=== PATIENT | female | born 1960 | race Caucasian/White ===

== ENCOUNTER 2017-07-11 11:54 | Inpatient (IN) | payer OTHER ==
[2017-07-11 13:36] VITALS: BMI 46.7
[2017-07-11] MEDS ORDERED: ALBUTEROL 2.5 MG/3 ML NEB SOL IH PRN (14:20)
[2017-07-11] MEDS: TRAMADOL HCL 50 MG TAB PO PRN ×2 (14:47→18:31)
[2017-07-11] MEDS ORDERED: VANCOMYCIN/NS 1 gm 1 GM/250 ML BAG IV SCH (15:00)
[2017-07-11] MEDS: VANCOMYCIN 2 GM in NA CHLORIDE 0.9% 500 ML IVPB SCH (15:04)
[2017-07-11 16:07] LABS: Urine Appearance CLEAR; Urine Bilirubin NEGATIVE (NEG); Urine Blood NEGATIVE (NEG); Urine Color YELLOW; Urine Glucose NEGATIVE (NEG); Urine Protein NEGATIVE (NEG); Urine Specific Gravity 1.025 (1.005-1.030); Urine Urobilinogen 0.2 mg/dL (0.2-1.0)
[2017-07-11 16:07] LABS: Absolute Lymphocytes (CBC) 1.4 K/uL (0.7-4.9); Absolute Monocytes 0.7 K/uL (0.1-1.3); Basophils % 1.1 % (0-1.3); Eosinophils % 4.1 % (0-4.4); Hematocrit 37.4 % (36.0-45.0); Lymphocytes % 16.1 % (15.3-44.8); MCH 30.3 pg (27.0-35.0); MPV 9.9 fL (7.6-11.3); Monocytes % 8.5 % (3.3-12.3); RBC Red Blood Cell Count 4.16 M/uL (3.86-4.86)
[2017-07-11 16:16] LABS: Urine Microscopic Reflex NO UMIC
[2017-07-11 16:37] LABS: Albumin 3.6 g/dL (3.2-5.5); Bilirubin Direct 0.1 mg/dL (0-0.2); Bilirubin Total 0.4 mg/dL (0.3-1.2); Protein, Total 6.6 g/dL (6.0-8.3)
[2017-07-11 16:45] LABS: Potassium 3.9 mEq/L (3.6-5.0)
[2017-07-11] MEDS: ALBUTEROL 2.5 MG/3 ML NEB SOL IH SCH (19:44)
[2017-07-11] MEDS: IPRATROPIUM BROM 0.5MG/2.5ML IH SCH (19:44)
[2017-07-11] MEDS: CALCIUM SUPPLEMENT PO SCH (21:39)
[2017-07-11] MEDS: CODEINE 30MG/APAP 300MG TAB PO PRN (22:55)
[2017-07-12] MEDS: IPRATROPIUM BROM 0.5MG/2.5ML IH SCH ×4 (01:46→19:20)
[2017-07-12] MEDS: ALBUTEROL 2.5 MG/3 ML NEB SOL IH SCH ×4 (01:46→19:21)
--- NOTE | 2017-07-12 03:07 | HP ---
Date of Admission: 07/11/2017 Chief Complaint: Painful breasts. History Of Present Illness: The patient dates her breast problem back approximately 6 weeks when she noticed a small area of redness around the medial portion of the right breast. She was treated with antibiotics with marked improvement. However, she said it did not completely fade away. Then she h ad a recurrence. Once again, she was given intramuscular and p.o. antibiotics couple weeks ago and c ontinued to improve until 2 days ago when she woke. Breast was enlarged, markedly tender. Some jessica rated area below the lateral portion of the right breast and erythema extending from the medial to th e lateral portion. She was afebrile. She was given the same antibiotics and then today presented wi th possibly increasing discomfort. However, she also noticed some discomfort in the left axillary an d nipple areas. Minimal amount of erythema. Due to the persistence and recurrence of the symptoms, we decided to admitted her for IV antibiotics and the possibility of biopsy, depending on her respons e, to make sure there was an underlying CA. Significant past history the patient is significantly im munocompromised secondary to large steroid doses for temporal arteritis. She also developed signific ant bronchial problems and has been seen by process safety manager in [place] with apparent defects in her mac Web and Rank. She has been gradually weaned off her steroids. Past Medical History: As above. Prior to the temporal arteritis, the patient was in good general he alth. Also significant that the patient had a lymphatic axillary dissection over 10 years ago for a nonspecific lymphadenitis. Family History: Noncontributory. Social History: Nonsmoker, nondrinker. Physical Examination: General: The patient is obviously uncomfortable middle-aged female. Vital Signs: Stable vital signs in no acute distress. Temperature 98.6, blood pressure 140/70, puls e 84 and regular, respiratory rate 22. Head and Neck: Normocephalic. Pupils equal, react to accommodation. Fundi negative. Trachea midli ne. Thyroid not palpable. ENT: Negative. Chest: Occasional high-pitched rhonchi bilaterally. Breasts: Left breast is tender around the nipple area areolar area and axillary area. Right breast enlarged, marked erythema from the medial to the lateral aspect, mostly below the nipple and indurate d in the inferior portion. Cardiovascular: PMI, midclavicular line. Heart: Sounds normal. Peripheral pulses present and equal bilaterally. Abdomen: No organomegaly. Bowel sounds present. Moderately obese. Extremities: Good tone bilaterally reflexes physiologic. Rectal: Deferred. Pelvic: Deferred. Impression: Cellulitis of the breast. Plan: The patient will be admitted and placed on IV antibiotics. Consultation was obtained with Meggan allen for a possible biopsy. The likelihood of this being CA with bilateral involvement, marked immunosuppression, and a right axi llary dissection is unlikely but needs to be considered. It is also of note that she had a mammogram routine in March, which was negative. Recent ultrasound did not show any abnormalities other abraham n the thickening of the tissue secondary to the cellulitis. HR/MODL Voice ID: [id number]
[2017-07-12] MEDS: PANTOPRAZOLE 40MG TABLET PO SCH (06:09)
[2017-07-12] MEDS: CODEINE 30MG/APAP 300MG TAB PO PRN ×2 (06:09→18:04)
[2017-07-12] MEDS: predniSONE 1 MG TAB PO SCH (08:59)
[2017-07-12] MEDS: CALCIUM SUPPLEMENT PO SCH ×2 (08:59→20:35)
[2017-07-12] MEDS: ASPIRIN 81 MG CHEWABLE TABLET PO SCH (08:59)
[2017-07-12] MEDS: predniSONE 5 MG TAB PO SCH (08:59)
[2017-07-12] MEDS: VITAMIN B COMPLEX 1 CAP PO SCH (08:59)
[2017-07-12] MEDS: LINACLOTIDE 145 MCG PO SCH (08:59)
[2017-07-12] MEDS ORDERED: predniSONE 20 MG TAB PO SCH (09:00)
[2017-07-12] MEDS: VANCOMYCIN 2 GM in NA CHLORIDE 0.9% 500 ML IVPB SCH (09:00)
[2017-07-12] MEDS: TRAMADOL HCL 50 MG TAB PO PRN (12:36)
[2017-07-12] MEDS: MORPHINE 4 MG/ML SYR IV PRN ×3 (12:57→22:58)
[2017-07-12] MEDS: NA CHLORIDE 0.9% 1,000 ML IV SCH ×2 (13:02→20:35)
--- NOTE | 2017-07-12 18:07 | P.PN ---
Subjective Date of Service: 07/12/17 Subjective: Improving Review of Systems General: Fever (no), Chills (o) ENT: Unremarkable Respiratory: Unremarkable Physical Examination - Vital Signs Temperature: 97.5 F Blood Pressure: 128/67 Pulse: 68 Respirations: 18 Pulse Ox (%): 100 - Physical Exam General: Alert, In no apparent distress, Oriented x3 HEENT: PERRLA, EOMI Respiratory: Normal air movement Integumentary: No rashes, No breakdown, No cyanosis Assessment And Plan - Plan biopsy when punch bx available ABx per dr camacho
--- NOTE | 2017-07-12 21:55 | PN ---
Date of Progress Note: 07/12/2017 The patient states the pain is approximately the same. However, examination still reveals some decre ase in erythema. However, the entire area of wall remains the same. Discussed with the surgery and a biopsy punch will be done and tissue can be sent for culture as well as for cytology. HR/MODL Voice ID: [id number] Report ID: [id number]
[2017-07-13] MEDS: IPRATROPIUM BROM 0.5MG/2.5ML IH SCH ×4 (01:09→19:42)
[2017-07-13] MEDS: ALBUTEROL 2.5 MG/3 ML NEB SOL IH SCH ×4 (01:10→19:42)
[2017-07-13] MEDS: CODEINE 30MG/APAP 300MG TAB PO PRN ×2 (02:30→14:20)
[2017-07-13] MEDS: VANCOMYCIN 2 GM in NA CHLORIDE 0.9% 500 ML IVPB SCH ×2 (02:32→20:37)
[2017-07-13 04:19] VITALS: O2SAT 93
[2017-07-13] MEDS: MORPHINE 4 MG/ML SYR IV PRN ×6 (07:24→23:55)
[2017-07-13] MEDS: PANTOPRAZOLE 40MG TABLET PO SCH (08:14)
[2017-07-13] MEDS: ASPIRIN 81 MG CHEWABLE TABLET PO SCH (08:15)
[2017-07-13] MEDS: predniSONE 1 MG TAB PO SCH (08:16)
[2017-07-13] MEDS: VITAMIN B COMPLEX 1 CAP PO SCH (08:16)
[2017-07-13] MEDS: predniSONE 5 MG TAB PO SCH (08:16)
[2017-07-13] MEDS: CALCIUM SUPPLEMENT PO SCH ×2 (08:18→20:36)
[2017-07-13] MEDS: LINACLOTIDE 145 MCG PO SCH (08:18)
[2017-07-13] MEDS: NA CHLORIDE 0.9% 1,000 ML IV SCH ×2 (08:18→18:00)
[2017-07-13] MEDS ORDERED: LIDOCAINE 1% 20 ML MDV IV ONE (15:22)
[2017-07-13] MEDS ORDERED: MORPHINE 4 MG/ML SYR IV ONE (16:27)
--- NOTE | 2017-07-13 17:02 | P.BOP ---
Preoperative diagnosis: right recurrent mastitis and dermatitis Postoperative diagnosis: same Primary procedure: 1. Incisional biospy right breast nipple areolar complex Secondary procedure: 2. Incisional biospy right breast medial Other procedure(s): 3. Incisional biospy right breast lateral Estimated blood loss: <5cc Specimen: bx x 3 Findings: as above Anesthesia: Local Complications: None Transferred to: Recovery Room Condition: Good
--- NOTE | 2017-07-13 21:17 | PN ---
Date of Progress Note: 07/13/2017 Subjective: The patient underwent the a biopsy this afternoon. Actually areas still looks erythemat ous, maybe slightly less so. Plan will be to continue the vancomycin until we perhaps get a prelimin armando path and/or pathological report tomorrow, and depending on the results, make a disposition. HR/MODL Voice ID: [id number] Report ID: [id number]
--- NOTE | 2017-07-14 00:20 | OP ---
Date of Procedure: 07/13/2017 Surgeon: Marcel Magana MD Preoperative Diagnosis: Right recurrent mastitis and dermatitis. Postoperative Diagnosis: Right recurrent mastitis and dermatitis. Procedures: 1.Incisional biopsy of a right breast nipple areolar complex. 2.Incisional biopsy of right breast medial side. 3.Incisional biopsy of right lateral breast. Anesthesia: Local. Indications: This is the case of a 57-year-old patient, who came to us with recurrent right breast i nfection with dermatitis. The imaging shows thickening of the skin over the right breast area and pe riareolar nipples region too. Dr. Aguirre has been giving her antibiotics on and off and it showed s ome improvement and then comes back once again. The possibility of inflammatory breast cancer is ovalle sed, so they consulted for a biopsy and also for tissue culture. The benefits, alternatives, and ris ks of incisional biopsy fully explained to the patient, which include but are not limited to infectio n, bleeding, damage to adjacent structures, anesthesia complications, complication nonhealing wound, ID, and even . She also understood this may not relieve any symptoms. She might need more than one surgical intervention. She understood and signed the consent. Procedure In Detail: The patient was in her room, placed in a supine position. The right breast was prepped and draped in sterile fashion. A time-out was called. After that we placed lidocaine 1% pl ain in different areas of the breast. We took at least 3 samples. Of the samples, 2 of them will be sent for cytology and one of them will be sent for tissue biopsy. Each one done in different areas of the breast using same technique, which consisted of local anesthetic, using of a circular blade, a 3-mm proceed to take a full thickness skin with some of the breast tissue attached to it and sent to the pathologist. Each specimen was sent individually. The patient tolerated the procedure well. H emostasis was obtained and the area was covered with sterile dressings. The patient tolerated the pr ocedure well. NAIMA/TANVIR Voice ID: [id number] Report ID: [id number]
[2017-07-14] MEDS: IPRATROPIUM BROM 0.5MG/2.5ML IH SCH ×4 (01:15→19:58)
[2017-07-14] MEDS: ALBUTEROL 2.5 MG/3 ML NEB SOL IH SCH ×4 (01:15→19:58)
[2017-07-14] MEDS: MORPHINE 4 MG/ML SYR IV PRN ×4 (03:27→14:27)
[2017-07-14] MEDS: NA CHLORIDE 0.9% 1,000 ML IV SCH ×2 (05:52→15:00)
[2017-07-14] MEDS: CALCIUM SUPPLEMENT PO SCH ×2 (08:32→20:21)
[2017-07-14] MEDS: LINACLOTIDE 145 MCG PO SCH (08:32)
[2017-07-14] MEDS: ASPIRIN 81 MG CHEWABLE TABLET PO SCH (08:33)
[2017-07-14] MEDS: predniSONE 1 MG TAB PO SCH (08:33)
[2017-07-14] MEDS: predniSONE 5 MG TAB PO SCH (08:33)
[2017-07-14] MEDS: PANTOPRAZOLE 40MG TABLET PO SCH (08:33)
[2017-07-14] MEDS: VITAMIN B COMPLEX 1 CAP PO SCH (08:38)
[2017-07-14] MEDS: ONDANSETRON 4 MG (ODT) TAB PO PRN ×2 (10:04→14:27)
[2017-07-14] MEDS: CODEINE 30MG/APAP 300MG TAB PO PRN ×2 (11:55→20:20)
--- NOTE | 2017-07-14 13:04 | P.PN ---
Subjective Date of Service: 07/14/17 Primary Care Provider: Dr Aguirre Chief Complaint: Breast Tenderness Subjective: No new changes, No C/O voiced, Improving, Doing well Review of Systems General: As per HPI Physical Examination - Vital Signs Temperature: 97.2 F Blood Pressure: 114/68 Pulse: 70 Respirations: 16 Pulse Ox (%): 98 - Physical Exam General: Alert, In no apparent distress HEENT: Atraumatic Neck: Supple, JVD not distended Respiratory: Clear to auscultation bilaterally, Normal air movement Cardiovascular: Regular rate/rhythm, Normal S1 S2 Gastrointestinal: Normal bowel sounds, No tenderness Musculoskeletal: No tenderness Integumentary: Other (Right breast with erythema and tenderness. Getting better per patient. ) Neurological: Normal speech, Normal tone, Normal affect Lymphatics: No axilla or inguinal lymphadenopathy - Studies Medications List Reviewed: Yes Assessment & Plan - Problems (Diagnosis) (1) Cellulitis of right breast Onset Date: 07/12/17 Current Visit: No Status: Acute Plan: Cellulitis of the right breast in lieu of chronic steriod use. -Gen Surgery Consulted. Biopsy performed. -Culture pending -On IV vanc. Will continue (2) Chronic use of steroids Current Visit: No Status: Chronic (3) Obesity Current Visit: No Status: Chronic Qualifiers: Obesity type: due to excess calories Obesity classification: adult class 3 (BMI >= 40) Serious obesity comorbidity presence: with serious comorbidity Body mass index: BMI 40.0-44.9 Qualified Code(s): E66.01 - Morbid (severe) obesity due to excess calories; Z68.41 - Body mass index (BMI) 40.0-44.9, adult ; Z68.41 - Body mass index (BMI) 40.0-44.9, adult; Z68.41 - Body mass index (BMI ) 40.0-44.9, adult; Z68.41 - Body mass index (BMI) 40.0-44.9, adult (4) Temporal arteritis Current Visit: No Status: Chronic (5) GERD (gastroesophageal reflux disease) Current Visit: No Status: Suspected Qualifiers: Esophagitis presence: esophagitis presence not specified Qualified Code(s) : K21.9 - Gastro-esophageal reflux disease without esophagitis (6) Obstructive sleep apnea Current Visit: No Status: Suspected Discharge Plan: Home Plan to discharge in: 24 Hours - Code Status/Comfort Care Code Status Assessed: Yes Critical Care: No
[2017-07-14] MEDS: VANCOMYCIN 2 GM in NA CHLORIDE 0.9% 500 ML IVPB SCH (15:57)
[2017-07-15] MEDS: ALBUTEROL 2.5 MG/3 ML NEB SOL IH SCH ×4 (01:31→20:03)
[2017-07-15] MEDS: IPRATROPIUM BROM 0.5MG/2.5ML IH SCH ×4 (01:31→20:03)
[2017-07-15] MEDS: TRAMADOL HCL 50 MG TAB PO PRN ×2 (02:38→08:43)
[2017-07-15] MEDS: NA CHLORIDE 0.9% 1,000 ML IV SCH ×3 (02:40→20:31)
[2017-07-15] MEDS: CODEINE 30MG/APAP 300MG TAB PO PRN ×3 (04:56→23:06)
[2017-07-15] MEDS: VANCOMYCIN 2 GM in NA CHLORIDE 0.9% 500 ML IVPB SCH (08:34)
[2017-07-15] MEDS: VITAMIN B COMPLEX 1 CAP PO SCH (08:34)
[2017-07-15] MEDS: PANTOPRAZOLE 40MG TABLET PO SCH (08:34)
[2017-07-15] MEDS: predniSONE 5 MG TAB PO SCH (08:34)
[2017-07-15] MEDS: predniSONE 1 MG TAB PO SCH (08:34)
[2017-07-15] MEDS: CALCIUM SUPPLEMENT PO SCH ×2 (08:34→20:31)
[2017-07-15] MEDS: LINACLOTIDE 145 MCG PO SCH (08:34)
[2017-07-15] MEDS: ASPIRIN 81 MG CHEWABLE TABLET PO SCH (08:36)
[2017-07-15] MEDS: MORPHINE 4 MG/ML SYR IV PRN (11:18)
--- NOTE | 2017-07-15 12:06 | P.PN ---
Subjective Date of Service: 07/15/17 Primary Care Provider: Dr Aguirre Chief Complaint: Breast Tenderness PT seen and examined at bedside. Chart Reviewed. Currently pt has no complains to offer and has been doing well overall. States pain is getting better and so is the erythema. Review of Systems General: As per HPI Physical Examination - Vital Signs Temperature: 96.6 F Blood Pressure: 117/61 Pulse: 71 Respirations: 16 Pulse Ox (%): 96 - Physical Exam General: Alert, In no apparent distress HEENT: Atraumatic Neck: Supple Respiratory: Clear to auscultation bilaterally, Normal air movement Cardiovascular: Regular rate/rhythm, Normal S1 S2 Gastrointestinal: Normal bowel sounds, No tenderness Musculoskeletal: No tenderness Integumentary: Erythema, Warmth (Right Breast Erythema around the nipple and on the right lower side. ) Neurological: Normal speech, Normal tone, Normal affect Lymphatics: No axilla or inguinal lymphadenopathy - Studies Microbiology Data (last 24 hrs): 07/13/17 15:35 Wound - Right Breast Gram Stain - Final Medications List Reviewed: Yes Assessment & Plan - Problems (Diagnosis) (1) Cellulitis of right breast Onset Date: 07/12/17 Current Visit: No Status: Acute Plan: Cellulitis of the right breast in lieu of chronic steriod use. -Gen Surgery Consulted. Biopsy performed. -Culture pending -On IV vanc. Will continue (2) Chronic use of steroids Current Visit: No Status: Chronic (3) Obesity Current Visit: No Status: Chronic Qualifiers: Obesity type: due to excess calories Obesity classification: adult class 3 (BMI >= 40) Serious obesity comorbidity presence: with serious comorbidity Body mass index: BMI 40.0-44.9 Qualified Code(s): E66.01 - Morbid (severe) obesity due to excess calories; Z68.41 - Body mass index (BMI) 40.0-44.9, adult ; Z68.41 - Body mass index (BMI) 40.0-44.9, adult; Z68.41 - Body mass index (BMI ) 40.0-44.9, adult; Z68.41 - Body mass index (BMI) 40.0-44.9, adult (4) Temporal arteritis Current Visit: No Status: Chronic (5) GERD (gastroesophageal reflux disease) Current Visit: No Status: Suspected Qualifiers: Esophagitis presence: esophagitis presence not specified Qualified Code(s) : K21.9 - Gastro-esophageal reflux disease without esophagitis (6) Obstructive sleep apnea Current Visit: No Status: Suspected
[2017-07-16] MEDS: IPRATROPIUM BROM 0.5MG/2.5ML IH SCH ×4 (01:14→19:54)
[2017-07-16] MEDS: ALBUTEROL 2.5 MG/3 ML NEB SOL IH SCH ×4 (01:14→19:54)
[2017-07-16] MEDS: VANCOMYCIN 2 GM in NA CHLORIDE 0.9% 500 ML IVPB SCH ×2 (03:00→14:33)
[2017-07-16] MEDS: NA CHLORIDE 0.9% 1,000 ML IV SCH ×3 (05:41→20:55)
[2017-07-16] MEDS: CALCIUM SUPPLEMENT PO SCH ×2 (09:36→20:55)
[2017-07-16] MEDS: VITAMIN B COMPLEX 1 CAP PO SCH (09:37)
[2017-07-16] MEDS: ASPIRIN 81 MG CHEWABLE TABLET PO SCH (09:37)
[2017-07-16] MEDS: predniSONE 1 MG TAB PO SCH (09:37)
[2017-07-16] MEDS: predniSONE 5 MG TAB PO SCH (09:37)
[2017-07-16] MEDS: PANTOPRAZOLE 40MG TABLET PO SCH (09:37)
[2017-07-16] MEDS: CODEINE 30MG/APAP 300MG TAB PO PRN ×2 (09:37→17:12)
[2017-07-16] MEDS: LINACLOTIDE 145 MCG PO SCH (09:37)
[2017-07-16] MEDS: TRAMADOL HCL 50 MG TAB PO PRN ×2 (15:09→20:59)
[2017-07-17] MEDS: CODEINE 30MG/APAP 300MG TAB PO PRN ×2 (01:08→08:54)
[2017-07-17] MEDS: IPRATROPIUM BROM 0.5MG/2.5ML IH SCH ×4 (01:21→19:28)
[2017-07-17] MEDS: ALBUTEROL 2.5 MG/3 ML NEB SOL IH SCH ×4 (01:21→19:29)
[2017-07-17] MEDS: CALCIUM SUPPLEMENT PO SCH ×2 (08:53→21:00)
[2017-07-17] MEDS: predniSONE 1 MG TAB PO SCH (08:53)
[2017-07-17] MEDS: LINACLOTIDE 145 MCG PO SCH (08:53)
[2017-07-17] MEDS: PANTOPRAZOLE 40MG TABLET PO SCH (08:54)
[2017-07-17] MEDS: VITAMIN B COMPLEX 1 CAP PO SCH (08:54)
[2017-07-17] MEDS: predniSONE 5 MG TAB PO SCH (08:54)
[2017-07-17] MEDS: ASPIRIN 81 MG CHEWABLE TABLET PO SCH (08:54)
--- NOTE | 2017-07-17 12:33 | P.PN ---
Subjective Date of Service: 07/16/17 Primary Care Provider: Dr Camacho Chief Complaint: Breast Tenderness / R mastitis Subjective: Tolerating diet, Improving Review of Systems General: Unremarkable Respiratory: Unremarkable Cardiovascular: Unremarkable Gastrointestinal: Unremarkable Integumentary: Rash (no) Physical Examination - Vital Signs Temperature: 97.6 F Blood Pressure: 118/57 Pulse: 81 Respirations: 18 Pulse Ox (%): 98 - Physical Exam General: Alert, Oriented x3, Cooperative HEENT: PERRLA, EOMI Neck: Supple Cardiovascular: Normal pulses Gastrointestinal: Soft and benign, No rebound, No guarding Integumentary: No rashes, No erythema (Ressolved erythema), No warmth, No cyanosis - Studies Microbiology Data (last 24 hrs): 07/13/17 15:35 Wound - Right Breast Gram Stain - Final 07/13/17 15:35 Wound - Right Breast Culture & Sensitivity - Final Medications List Reviewed: Yes Assessment And Plan - Plan biopsy pending, case discussed today with radiology dept and pt ABx per dr camacho
[2017-07-17] MEDS: NA CHLORIDE 0.9% 1,000 ML IV SCH (13:00)
[2017-07-17] MEDS: TRAMADOL HCL 50 MG TAB PO PRN (13:23)
--- NOTE | 2017-07-17 14:42 | PN ---
Date of Progress Note: 07/16/2017 The patient continues complaining of discomfort in the entire breast, which is still quite enlarged; however, the erythema has improved markedly. The left axillary tenderness is also improved considera tony. Awaiting cytology report before making disposition. HR/MODL Voice ID: [id number] Report ID: [id number]
[2017-07-17] MEDS: VANCOMYCIN 2 GM in NA CHLORIDE 0.9% 500 ML IVPB SCH (15:35)
[2017-07-17] MEDS ORDERED: CODEINE 30MG/APAP 300MG TAB PO ONE (18:14)
[2017-07-17 20:58] VITALS: BP 130/82; TEMP 97.3
--- NOTE | 2017-07-18 21:34 | PN ---
Date of Progress Note: 07/17/2017 The patient's biopsies come back with chronic inflammation. No evidence of any cancers. She still c omplains of discomfort and enlargement in the right breast. However, the erythema continues to reced e. I feel she will be well enough to be discharged on oral medication and use Cleocin as antibiotic of choice. Tissue culture was negative. The patient obviously had been on antibiotics. She is to f soraida up with my office in 4 or 5 days. HR/MODL Voice ID: [id number] Report ID: [id number]
--- NOTE | 2017-09-16 18:20 | DS ---
Date of Discharge: 07/17/2017 Hospital Course: The patient was admitted to the hospital on 07/11 for treatment of severe mastitis of the right breast. The patient was a failure to control her symptoms, erythema, pain, marked edema on an outpatient basis with various antibiotics and was therefore decided to admit her for more inte nsive care and possible biopsy. She was placed on IV vancomycin and showed some rather good improvem ent in the first couple of days; however, then seemed to level up, also during this time complained o f some discomfort in the left axillary area; however, no true cellulitis developed in this area. She was seen by surgeon, who performed 3 incisional biopsies to make sure there was not any underlying c ancer, at which there was none. On the above-outlined regimen, she showed slow, but gradual improvem ent. She was continued on decreasing dose of steroids, which she has been on for a number of months now for temporal arteritis. At the time of discharge, she was maintained on oral antibiotics and armida lgesics, to follow up with myself and a surgeon in fair condition on 07/17. Final Diagnoses: Cellulitis of the right breast, severe temporal arteritis by history. HR/MODL Voice ID: [id number] Report ID: [id number]
== END 2017-07-17 21:55 | disposition home or self-care (01) | DRG 600 ==
LOC: 2ND 13:23 → OBSVTOIN 07-13 10:02
PROVIDERS: ADMIT Family Medicine; ATTEND Family Medicine
PROC: 0HBT3ZX Excision of Right Breast, Percutaneous Approach, Diagnostic (ICD-10-PCS; principal; 2017-07-13)
DX: N61.0 Mastitis without abscess (principal); Z68.42 Body mass index [BMI] 45.0-49.9, adult; L30.9 Dermatitis, unspecified; M31.6 Other giant cell arteritis; T45.1X5A Adverse effect of antineoplastic and immunosuppressive drugs, initial encounter; Y92.9 Unspecified place or not applicable; Z79.52 Long term (current) use of systemic steroids; E66.9 Obesity, unspecified
CPT/HCPCS: 36415; 80048; 80076; 80202; 81003; 82565; 85025; 87070; 87205; 88305; G0378; J7030; J7512

== ENCOUNTER 2021-10-05 12:13 | Emergency (ER) | payer OTHER ==
[2021-10-05 14:47] LABS: Absolute Lymphocytes (CBC) 1.6 K/uL (0.7-4.9); Hematocrit 41.9 % (36.0-45.0); Lymphocytes % 21.9 % (15.3-44.8); MCV 88.1 fL (80-100); MPV 9.2 fL (7.6-11.3); RBC Red Blood Cell Count 4.76 M/uL (3.86-4.86)
[2021-10-05 14:55] LABS: Protime INR 0.91
[2021-10-05 15:31] LABS: ALT/SGPT 147 U/L (12-78); AST/SGOT 71 U/L (15-37); Albumin 3.5 g/dL (3.4-5.0); Alkaline Phosphatase 114 U/L (45-117); BUN Blood Urea Nitrogen 11 mg/dL (7-18); Bicarbonate 26 mmol/L (21-32); Bilirubin Total 0.4 mg/dL (0.2-1.0); C-Reactive Protein 5.07 mg/L (<3.00); Glomerular Filtration Rate 98 ml/min (=/>90); Glucose Level 82 mg/dL (74-106); Potassium 4.3 mmol/L (3.5-5.1); Protein, Total 7.1 g/dL (6.4-8.2); Sodium Level 138 mmol/L (136-145); Troponin High Sensitivity 5.1 pg/mL (<58.9)
[2021-10-05 15:36] LABS: Bilirubin Direct < 0.1 mg/dL (0-0.2)
[2021-10-05] MEDS ORDERED: HYDROCODONE/APAP 7.5/325 MG TAB ONE (16:13)
[2021-10-05] MEDS ORDERED: METOCLOPRAMIDE 10 MG/2mL INJ ONE (16:13)
[2021-10-05] MEDS ORDERED: dexAMETHasone 10 MG/ML VIAL ONE (16:14)
--- NOTE | 2021-10-05 16:43 | RAD REPORT ---
EXAM DESCRIPTION: CT - Head Brain Wo Cont - 10/05/2021 4:25 pm CLINICAL HISTORY: Headache, new or worsening Headache, drowsiness COMPARISON: Sinus Wo Cont dated 07/02/2017 TECHNIQUE: All CT scans are performed using dose optimization technique as appropriate and may inclu de automated exposure control or mA/KV adjustment according to patient size. FINDINGS: No intracranial hemorrhage, hydrocephalus or extra-axial fluid collection.No areas of brai n edema or evidence of midline shift. The paranasal sinuses and mastoids are clear. The calvarium is intact. IMPRESSION: No acute intracranial abnormality.
--- NOTE | 2021-10-05 17:22 | ER ---
Nurse's Notes [facility] Name: Bushra Anderson Age: 61 yrs Sex: Female : 1960 Arrival Date: 10/05/2021 Time: 12:16 Bed 15 Private MD: Darien Aguirre Diagnosis: Headache;Hypertensive heart disease without heart failure Presentation: 10/05 12:30 Chief complaint: Patient states: "The last couple days, I felt like my face was kind of ss swollen, so I took my blood pressure and it was kind of high. Vivian with Dr. Aguirre sent me here." Pt reports that her BP at home was 161/102, 168/119. 12:33 Coronavirus screen: Client denies travel out of the [place] in the last 14 days. Ebola ss Screen: Patient denies exposure to infectious person. Patient denies travel to an Ebola-affected area in the 21 days before illness onset. Initial Sepsis Screen: Does the patient meet any 2 criteria? No. Patient's initial sepsis screen is negative. Does the patient have a suspected source of infection? No. Patient's initial sepsis screen is negative. Risk Assessment: Do you want to hurt yourself or someone else? Patient reports no desire to harm self or others. Onset of symptoms is unknown. 12:33 Method Of Arrival: Wheelchair ss 12:33 Acuity: TARA 3 ss Triage Assessment: 16:40 General: Appears uncomfortable, Behavior is calm, cooperative. Pain: Complains of pain jg9 in head. Historical: - Allergies: 12:30 Bees; ss - PMHx: 12:30 fatty liver; GERD; Hypertension; Stomach Ulcers; Vertigo; ss - Immunization history:: Client reports receiving the 2nd dose of the Covid vaccine. - Social history:: Smoking status: Patient denies any tobacco usage or history of. Screenin:25 Abuse screen: Denies threats or abuse. Denies injuries from another. Nutritional jg9 screening: No deficits noted. Tuberculosis screening: No symptoms or risk factors identified. Fall Risk None identified. Assessment: 17:25 Reassessment: Patient states feeling better. Patient states symptoms have improved. jg9 Vital Signs: 12:30 Pulse 83; Resp 16; Temp 97.5(TE); Pulse Ox 99% on R/A; Height 5 ft. 5 in. (165.10 cm); ss 12:33 BP 150 / 80; ss 12:34 Pain 4/10; ss 17:15 BP 114 / 60; Pulse 68; Resp 16 S; Pulse Ox 97% on R/A; jg9 17:45 BP 104 / 63; Pulse 65; Resp 16 S; Pulse Ox 95% on R/A; jg9 ED Course: 12:16 Patient arrived in ED. as 12:16 Darien Aguirre MD is Private Physician. as 12:30 Arm band placed on left wrist. ss 12:34 Triage completed. ss 13:24 José Miguel Flores PA is PHCP. cp 13:24 Mo Almonte MD is Attending Physician. cp 14:19 Tamika Ayala, JULIA is Primary Nurse. ss 16:00 Patient has correct armband on for positive identification. Bed in low position. Call jg9 light in reach. Side rails up X 1. 16:00 Inserted saline lock: 22 gauge in left forearm, using aseptic technique. jg9 16:27 CT Head Brain wo Cont In Process Unspecified. EDMS 17:20 Darien Aguirre MD is Referral Physician. cp 17:26 No provider procedures requiring assistance completed. jg9 Administered Medications: 16:45 Drug: Reglan (metoCLOPramide) 10 mg Route: IVP; Site: left forearm; jg9 17:41 Follow up: Response: No adverse reaction jg9 16:45 Drug: Dexamethasone 10 mg Route: IVP; Site: left forearm; jg9 17:41 Follow up: Response: No adverse reaction jg9 16:47 Drug: Hydrocodone-Acetaminophen (7.5 mg-325 mg) 1 tabs Route: PO; jg9 17:46 Follow up: Response: No adverse reaction; Marked relief of symptoms jg9 Medication: 17:27 VIS not applicable for this client. jg9 Outcome: 17:21 Discharge ordered by MD. cp 17:50 Patient left the ED. jg9 Signatures: Dispatcher [employer] EDMS Kaitlin Magana Shelby, RN RN José Miguel Flores PA PA cp Amberly Chowdhury RN RN jg9
--- NOTE | 2021-10-05 17:22 | EDPHYS ---
Physician Documentation [facility] Name: Bushra Anderson Age: 61 yrs Sex: Female : 1960 Arrival Date: 10/05/2021 Time: 12:16 Bed 15 Private MD: Draien Aguirre ED Physician Mo Almonte Historical: - Allergies: 10/05 12:30 Bees; ss - PMHx: 12:30 fatty liver; GERD; Hypertension; Stomach Ulcers; Vertigo; ss - Immunization history:: Client reports receiving the 2nd dose of the Covid vaccine. - Social history:: Smoking status: Patient denies any tobacco usage or history of. Vital Signs: 12:30 Pulse 83; Resp 16; Temp 97.5(TE); Pulse Ox 99% on R/A; Height 5 ft. 5 in. (165.10 cm); ss 12:33 BP 150 / 80; ss 12:34 Pain 4/10; ss 17:15 BP 114 / 60; Pulse 68; Resp 16 S; Pulse Ox 97% on R/A; jg9 17:45 BP 104 / 63; Pulse 65; Resp 16 S; Pulse Ox 95% on R/A; jg9 MDM: 15:35 Patient medically screened. cp 17:19 Data reviewed: vital signs, nurses notes, lab test result(s), EKG, radiologic studies, cp CT scan. Test interpretation: by ED physician or midlevel provider: ECG. Physician consultation: Darien Aguirre MD was contacted at 17:19, regarding patient's condition, outpatient follow-up, patient to contact office in morning for f/u. 10/05 14:24 Order name: Basic Metabolic Panel; Complete Time: 15:53 cp 10/05 14:24 Order name: CBC with Diff; Complete Time: 15:53 cp 10/05 14:24 Order name: LFT's; Complete Time: 15:53 cp 10/05 15:53 Interpretation: Normal except: AST 71; ALT 147; GLOB 3.6; A/G 1.0. cp 10/05 14:24 Order name: Magnesium; Complete Time: 15:53 cp 10/05 14:24 Order name: PT-INR; Complete Time: 15:53 cp 10/05 14:24 Order name: Troponin HS; Complete Time: 15:53 cp 10/05 15:53 Interpretation: Troponin HS 5.1; Reviewed. 10/05 14:24 Order name: EKG; Complete Time: 14:25 10/05 14:24 Order name: Cardiac monitoring; Complete Time: 15:39 10/05 14:24 Order name: CRP; Complete Time: 15:53 10/05 15:53 Interpretation: Abnormal: C-REACTIVE PROT 5.07. 10/05 14:24 Order name: ESR; Complete Time: 15:53 10/05 15:43 Order name: CT Head Brain wo Cont; Complete Time: 17:09 10/05 14:24 Order name: EKG - Nurse/Tech; Complete Time: 15:40 10/05 14:24 Order name: IV Saline Lock; Complete Time: 14:53 10/05 14:24 Order name: Labs collected and sent; Complete Time: 14:53 10/05 14:24 Order name: O2 Per Protocol; Complete Time: 17:42 10/05 14:24 Order name: O2 Sat Monitoring; Complete Time: 15:40 10/05 14:54 Order name: Labs - recollect needed: GREEN TOP ONLY; Complete Time: 17:42 zm Administered Medications: 16:45 Drug: Reglan (metoCLOPramide) 10 mg Route: IVP; Site: left forearm; jg9 17:41 Follow up: Response: No adverse reaction jg9 16:45 Drug: Dexamethasone 10 mg Route: IVP; Site: left forearm; jg9 17:41 Follow up: Response: No adverse reaction jg9 16:47 Drug: Hydrocodone-Acetaminophen (7.5 mg-325 mg) 1 tabs Route: PO; jg9 17:46 Follow up: Response: No adverse reaction; Marked relief of symptoms jg9 Disposition Summary: 10/05/21 17:21 Discharge Ordered Location: Home cp Problem: new cp Symptoms: have improved cp Condition: Stable cp Diagnosis - Headache cp - Hypertensive heart disease without heart failure cp Followup: cp - With: Darien Aguirre MD - When: Tomorrow - Reason: call clinic in morning fot follow-up Discharge Instructions: - Discharge Summary Sheet cp - General Headache Without Cause cp - Hypertension, Adult cp - How to Take Your Blood Pressure, Gitk-qc-Vnor cp - How to Take Your Blood Pressure cp Forms: - Medication Reconciliation Form cp - Thank You Letter cp - Antibiotic Education cp - Prescription Opioid Use cp Prescriptions: - Fioricet 50-300-40 mg Oral capsule - take 1 capsule by ORAL route every 4 hours as needed; 20 capsule; Refills: 0, cp Product Selection Permitted - Zofran 4 mg Oral Tablet - take 1 tablet by ORAL route every 12 hours As needed; 20 tablet; Refills: 0, cp Product Selection Permitted Signatures: Dispatcher [employer] Tamika Vivar RN RN ss José Miguel Flores PA PA Amberly León RN RN jg9 Frances Magana
[2021-10-05 17:56] VITALS: TEMP 97.5
[2021-10-05 18:01] VITALS: BP 104/63; O2SAT 95
--- NOTE | 2021-10-06 13:54 | EKG ---
Test Date: 2021-10-05 Test Time: 14:30:12 Motion Picture Projectionist Apprentice: JESSICA MEASUREMENT RESULTS: Intervals: Rate: 67 NH: 144 QRSD: 88 QT: 388 QTc: 409 [place]: P: 35 NH: 144 QRS: 31 T: 32 INTERPRETIVE STATEMENTS: Normal sinus rhythm Normal ECG Compared to ECG 08/03/2016 11:31:08 No significant changes Electronically Signed On 10-06-21 13:51:14 CDT by Jhonatan Garrett
== END 2021-10-05 17:50 | disposition home or self-care (01) ==
LOC: ER 12:13
DX: R51.9 Headache, unspecified (principal); I11.9 Hypertensive heart disease without heart failure; I10 Essential (primary) hypertension; Z91.030 Bee allergy status
CPT/HCPCS: 85025; 80048; 36415; 83735; 85610; 80076; 85652; 84484; 86140; 70450; J2765; J1100; 93005

== ENCOUNTER 2022-05-22 17:34 | Inpatient (IN) | payer OTHER ==
[2022-05-22 18:15] LABS: SARS-CoV-2 Antigen Rapid Res Negative (Negative)
--- OUTSIDE RECORDS SUMMARY | 2022-05-22 21:38 | XMS REPORT | Continuity of Care Document ---
:1960 Author Organization [facility] t Address [address] [place] [address] Care Team Providers Name Role Phone Kennedi León MD Primary Care Physician Justino Morris MD Attending Clinician Rochelle Elizabeth MA Attending Clinician Unavailable Toribio Teixeira DO Attending Clinician ULISES SCHREIBER Attending Clinician Unavailable NEDRA LANDON Attending Clinician Unavailable BRAYDEN ARIAS Attending Clinician Unavailable IGLESIA ZUÑIGA Attending Clinician Unavailable Yves Collado MD Attending Clinician Nacho Perales MD Attending Clinician Perlita Gross RN Attending Clinician Unavailable 2, [facility] Attending Clinician Unavailable Doctor Unassigned, Drew Attending Clinician Unavailable [facility] Attending Clinician Unavailable Brayden Arias MD Attending Clinician Kota Kelly MD Attending Clinician Payers Payer Name Policy Type Policy Number Effective Date Expiration Date S ource Problems Condition Condition Condition Status Onset Resolution Last Treating Co mments Source Name Details Category Date Date Treatment Clinician Date History of History of Disease Active U nivers temporal temporal 8-13 [place] Chronic Chronic Disease Active [facility] tension-ty tension-ty 8-13 it y of pe pe 00:00: [place] headache, headache, 00 Medi deanne not not Branch intractabl intractabl e e Chronic Chronic Disease Active Univers nonintract nonintract 8-13 it y of able able 00:00: [place] headache, headache, 00 [facility] unspecifie unspecifie Br anch d headache d headache type type Transamini Transamini Disease Active 2017-04 U nivers tis tis 1-07 ity of 00:00: [place] 00 Medical Branch Elevated Elevated Disease Active Unive rs ALT ALT 9-26 ity [place] measuremen measuremen [place] [facility] [place] Immunizati Immunizati Disease Active U nivers on on 12-20 ity of counseling counseling 00:[place] [facility] [place] Immunizati Immunizati Disease Active U nivers on on 12-20 ity of counseling counseling 00:[place] [facility] [place] 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 00:00: [place] chain chain 00 Medical Branch Hypovitami Hypovitami Disease Active U nivers nosis D: nosis D: 09-22 ity of 18(07/2017) 18(07/2017) [place] ; ; [place] Medical 19(01/2018 19(01/2018 Br anch ); ); 24(05/2018) 24(05/2018) 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 ity of without without 00:00: [place] dysplasia dysplasia 00 [facility] Branch Screening Screening Disease Active Uni vers for HIV for HIV 6-20 ity of (human (human 00:00: [place] immunodefi immunodefi 00 Me dical ciency ciency Branch virus) virus) Fatigue, Fatigue, Disease Active Unive rs unspecifie unspecifie 6-20 it y of d type d type 00:00: [place] 00 Medical Branch 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 6-20 ity of 00:00: [place] 00 Medical Branch penitentiary penitentiary Disease Active Uni vers current current 6-20 ity of use of use of 00:00: [place] systemic systemic 00 Medica l steroids steroids Branch At risk At risk Disease Active Univers for bone for bone 6-20 ity of density density 00:00: [place] loss loss 00 Medical Branch Sicca Sicca Disease Active Univers 6-20 ity of 00:00: [place] 00 Medical Branch Allergies, Adverse Reactions, Alerts Allergy Allergy Status Severity Reaction(s) Onset Inactive Treating Comm ents Source Name Type Date Date Clinician Other Propensi Active Bee Venom Metho di ty to 5-02 st adverse 00:00: Hospita reaction 00 l s Bee Propensi Active Swelling Univer s Sting / ty to 6-20 ity of [place] adverse 00:00: [place] reaction 00 Medical s Branch BEE DRUG Active High Anaphylaxis Unive rs STING / INGREDI 6-20 ity of VENOM 00:00: [place] 00 Medical Branch Family History Family Member Diagnosis Comments Start Date Stop Date Source Natural mother Hypertension [facility] Natural mother Heart disease [facility] Paternal aunt Cancer [facility] Paternal grandmother Crohn's disease [facility] father Heart disease [facility] Maternal grandfather Cancer [facility] Maternal grandfather Heart disease [facility] Maternal grandmother Cancer [facility] Social History Social Habit Start Date Stop Date Quantity Comments Source Tobacco use and 2019-03-04 2019-03-04 Never used Universit y of exposure 00:00:00 00:00:00 [facility] Alcohol intake 2019-03-04 2019-03-04 Current University 00:00:00 00:00:00 non-drinker of [facility] [place] alcohol Branch (finding) Sex Ass[birth year] [facility] 00:00:00 00:00:00 Smoking Status Start Date Stop Date Source Never smoker [facility] Branch Medications Ordered Filled Start Stop Current Ordering Indication Dosage Frequency Signature Comments Components Source Medication Medication Date Date Medication? Clinician (SIG) Name Name doxycycline 2020-0 Yes 100mg Q.5D Take 100 M ethodi (VIBRAMYCIN 4-[address] ) 100 MG 10:00: mouth 2 Hospit a oral dosage 22 (two) l form times a day. lisinopriL 2020-0 Yes 5mg QD Take 5 mg Me thodi (PRINIVIL) 4-[address] 5 mg tablet 10:00: daily. Hosp josi 22 l fluticasone 2020-0 Yes QD Inhale Meth alan -umeclidin- 4-[address] vilanter 10:00: Hospita 100-62.5-25 22 l mcg blister with device levalbutero 2020-0 Yes 1{puff} Q4H Inhale 1-2 Methodi l (XOPENEX 4-[address] HFA) 45 10:00: every 4 Hospita mcg/actuati 22 (four) l on inhaler hours as needed for wheezing. guaiFENesin 2020-0 Yes Take by Met hodi (Mucinex) 4-[address] 1,200 mg 10:00: needed. Hospit a tablet 22 l extended release 12hr codeine-gua 2020-0 Yes [id number] 5mL [id number] Take 5 mL Methodi ifenesin 4-07 [id number] mouth [address] (GUAIFENESI 10:00: 3D (three) Hos sherry N AC) 22 times a l 10-100 mg/5 day as mL liquid needed for cough .acute pain. vitamin B 2020-0 Yes Take by Metho di complex 4-[address] (B-COMPLEX 09:39: Hospita ORAL) 56 l predniSONE 2020-0 Yes 1mg QD Take 1 mg Me thodi (DELTASONE) 4-[address] 1 mg tablet 09:39: daily. Hosp josi 56 l predniSONE 2020-0 Yes 5mg QD Take 5 mg Me thodi (DELTASONE) 4-[address] 5 mg tablet 09:39: daily. Hosp josi 56 l linaclotide 2020-0 Yes 145ug QD Take 145 M ethodi (LINZESS) 4-[address] 145 mcg 09:39: mouth Hospita capsule 56 daily l before breakfast. calcium 2020-0 Yes Q.5D Take by Methodi citrate/vit 4-[address] lackey D3 09:39: (two) Hospita (CITRACAL + 56 times a l D ORAL) day. pantoprazol 2020-0 Yes 40mg Q.5D Take 1 Meth alan e 4-07 tablet (40 st (PROTONIX) 00:00: mg total) Ho spita 40 MG EC 00 by mouth 2 l tablet (two) times a day. diclofenac 2018-04 Yes [id number] 50mg Take 1 Univers 50 mg EC 0-18 tablet by ity of tablet 00:00: mouth 3 [place] 00 (three) Medical times Branch daily with meals. albuterol 2018-04 Yes USE 1 VIAL Un marquis 2.5 mg /3 0-03 IN ity of mL (0.083 00:00: NEBULIZER Mac as %) 00 4 TIMES Medical nebulizer DAILY Branch solution cefdinir 2018-04 Yes TAKE 2 Univers 300 mg 0-02 CAPSULES ity of capsule 00:00: BY MOUTH [place] 00 ONCE DAILY Medical Branch cefdinir 2018-04 Yes TAKE 2 Methodi (OMNICEF) 0-[address] 300 MG 00:00: BY MOUTH Hospita capsule 00 ONCE DAILY l predniSONE Yes 10mg Take 1 Unive rs 10 mg 9-06 tablet by ity of tablet 00:00: mouth [place] 00 daily. 2 Medical tabs daily Branch x 3weeks~ 1.5 tabs daily x 3 weeks~ 2 tabs daily x weeks~ STOP. Start 5mg & 1mg tabs predniSONE 2018-0 Yes 5mg Take 1 Unive rs 5 mg tablet 9-06 tablet by ity of 00:00: mouth [place] 00 daily. Medical Start Branch after 10mg dose is complete. Take with 1mg dose predniSONE Yes 1mg Take 1 Unive rs 1 mg tablet 9-06 tablet by ity of 00:00: mouth [place] 00 daily. 4 Medical tabs daily Branch j7uaajx~3 tabs daily o5zmcrz~2 tabs daily r4ptqyo~1 tab daily p8ccgbt~ STOP predniSONE 2019-0 Yes 10mg Take 1 Unive rs 10 mg 9-06 tablet by ity of tablet 00:00: mouth [place] 00 daily. 2 Medical tabs daily Branch x 3weeks~ 1.5 tabs daily x 3 weeks~ 2 tabs daily x weeks~ STOP. Start 5mg & 1mg tabs predniSONE 2018-0 Yes 5mg Take 1 Unive rs 5 mg tablet 9-06 tablet by ity of 00:00: mouth [place] 00 daily. Medical Start Branch after 10mg dose is complete. Take with 1mg dose predniSONE 2018-0 Yes 1mg Take 1 Unive rs 1 mg tablet 9-06 tablet by ity of 00:00: mouth [place] 00 daily. 4 Medical tabs daily Branch d9tbqsf~3 tabs daily y2gucfj~2 tabs daily p9svpdd~1 tab daily g9mkcof~ STOP predniSONE 2019-0 Yes 10mg Take 1 Unive rs 10 mg 9-06 tablet by ity of tablet 00:00: mouth [place] 00 daily. 2 Medical tabs daily Branch x 3weeks~ 1.5 tabs daily x 3 weeks~ 2 tabs daily x weeks~ STOP. Start 5mg & 1mg tabs predniSONE 2019-0 Yes 5mg Take 1 Unive rs 5 mg tablet 9-06 tablet by ity of 00:00: mouth [place] 00 daily. Medical Start Branch after 10mg dose is complete. Take with 1mg dose predniSONE 2019-0 Yes 1mg Take 1 Unive rs 1 mg tablet 9-06 tablet by ity of 00:00: mouth [place] 00 daily. 4 Medical tabs daily Branch c4ydtqo~3 tabs daily u2qsfzp~2 tabs daily e6lzkpm~1 tab daily t5mpscl~ STOP predniSONE 2019-0 Yes 10mg Take 1 Unive rs 10 mg 9-06 tablet by ity of tablet 00:00: mouth [place] 00 daily. 2 Medical tabs daily Branch x 3weeks~ 1.5 tabs daily x 3 weeks~ 2 tabs daily x weeks~ STOP. Start 5mg & 1mg tabs predniSONE 2019-0 Yes 5mg Take 1 Unive rs 5 mg tablet 9-06 tablet by ity of 00:00: mouth [place] 00 daily. Medical Start Branch after 10mg dose is complete. Take with 1mg dose predniSONE 2019-0 Yes 1mg Take 1 Unive rs 1 mg tablet 9-06 tablet by ity of 00:00: mouth [place] 00 daily. 4 Medical tabs daily Branch s2hdott~3 tabs daily n8viael~2 tabs daily x1orsld~1 tab daily o2lkqao~ STOP predniSONE 2019-0 Yes 15mg Take 15 mg U nivers 5 mg tablet 8-27 by mouth ity of 20:03: daily. [address] predniSONE 2019-0 Yes 15mg Take 15 mg U nivers 5 mg tablet 8-27 by mouth ity of 20:03: daily. [address] predniSONE 2019-0 Yes 15mg Take 15 mg U nivers 5 mg tablet 8-27 by mouth ity of 20:03: daily. [address] predniSONE 2019-0 Yes 15mg Take 15 mg U nivers 5 mg tablet 8-27 by mouth ity of 20:03: daily. [address] predniSONE Yes 15mg Take 15 mg U nivers 5 mg tablet 8-27 by mouth ity of 20:03: daily. [address] predniSONE Yes 15mg Take 15 mg U nivers 5 mg tablet 8-27 by mouth ity of 20:03: daily. [address] predniSONE Yes 15mg Take 15 mg U nivers 5 mg tablet 8-27 by mouth ity of 20:03: daily. [address] predniSONE Yes 15mg Take 15 mg U nivers 5 mg tablet 8-27 by mouth ity of 20:03: daily. [address] predniSONE Yes 15mg Take 15 mg U nivers 5 mg tablet 8-27 by mouth ity of 20:03: daily. [address] predniSONE Yes 15mg Take 15 mg U nivers 5 mg tablet 8-27 by mouth ity of 20:03: daily. [address] predniSONE Yes 15mg Take 15 mg U nivers 5 mg tablet 8-27 by mouth ity of 20:03: daily. [address] lisinopril- Yes 1{tbl} Take 1 Un marquis hydrochloro 8-27 tablet by ity of thiazide 20:01: mouth [place] 20-12.5 mg 45 daily. Medical per tablet Branch lisinopril- Yes 1{tbl} Take 1 Un marquis hydrochloro 8-27 tablet by ity of thiazide 20:01: mouth [place] 20-12.5 mg 45 daily. Medical per tablet Branch lisinopril- Yes 1{tbl} Take 1 Un marquis hydrochloro 8-27 tablet by ity of thiazide 20:01: mouth [place] 20-12.5 mg 45 daily. Medical per tablet Branch lisinopril- Yes 1{tbl} Take 1 Un marquis hydrochloro 8-27 tablet by ity of thiazide 20:01: mouth [place] 20-12.5 mg 45 daily. Medical per tablet Branch lisinopril- Yes 1{tbl} Take 1 Un marquis hydrochloro 8-27 tablet by ity of thiazide 20:01: mouth [place] 20-12.5 mg 45 daily. Medical per tablet Branch lisinopril- Yes 1{tbl} Take 1 Un marquis hydrochloro 8-27 tablet by ity of thiazide 20:01: mouth [place] 20-12.5 mg 45 daily. Medical per tablet Branch lisinopril Yes 1{tbl} Take 1 Un marquis hydrochloro 8-27 tablet by ity of thiazide 20:01: mouth [place] 20-12.5 mg 45 daily. Medical per tablet Branch lisinopril Yes 1{tbl} Take 1 Un marquis hydrochloro 8-27 tablet by ity of thiazide 20:01: mouth [place] 20-12.5 mg 45 daily. Medical per tablet Branch lisinopril Yes 1{tbl} Take 1 Un marquis hydrochloro 8-27 tablet by ity of thiazide 20:01: mouth [place] 20-12.5 mg 45 daily. Medical per tablet Branch lisinopril Yes 1{tbl} Take 1 Un marquis hydrochloro 8-27 tablet by ity of thiazide 20:01: mouth [place] 20-12.5 mg 45 daily. Medical per tablet Branch lisinopril Yes 1{tbl} Take 1 Un marquis hydrochloro 8-27 tablet by ity of thiazide 20:01: mouth [place] 20-12.5 mg 45 daily. Medical per tablet Branch clindamycin 2018- No 300mg Take 300 Univers 300 mg 8-27 08-27 mg by ity of capsule 20:00: 00:00 mouth 3 [place] 59 :00 (three) Medical times Branch daily. clindamycin 2018- No 300mg Take 300 Univers 300 mg 8-27 08-27 mg by ity of capsule 20:00: 00:00 mouth 3 [place] 59 :00 (three) Medical times Branch daily. traMADol 50 2018- Yes [id number] 50mg Take 1 Univers mg tablet 8-27 tablet by ity o f 00:00: mouth [place] 00 every 8 Medical (eight) Branch hours as needed for Pain (scale 4-6). traMADol 50 2018-0 Yes [id number] 50mg Take 1 Univers mg tablet 8-27 tablet by ity o f 00:00: mouth [place] 00 every 8 Medical (eight) Branch hours as needed for Pain (scale 4-6). traMADol 50 2019-0 Yes [id number] 50mg Take 1 Univers mg tablet 8-27 tablet by ity o f 00:00: mouth [place] 00 every 8 Medical (eight) Branch hours as needed for Pain (scale 4-6). traMADol 50 2019-0 Yes [id number] 50mg Take 1 Univers mg tablet 8-27 tablet by ity o f 00:00: mouth [place] 00 every 8 Medical (eight) Branch hours as needed for Pain (scale 4-6). traMADol 50 2019-0 Yes [id number] 50mg Take 1 Univers mg tablet 8-27 tablet by ity o f 00:00: mouth [place] 00 every 8 Medical (eight) Branch hours as needed for Pain (scale 4-6). traMADol 50 2019-0 Yes [id number] 50mg Take 1 Univers mg tablet 8-27 tablet by ity o f 00:00: mouth [place] 00 every 8 Medical (eight) Branch hours as needed for Pain (scale 4-6). traMADol 50 2018-0 Yes [id number] 50mg Take 1 Univers mg tablet 8-27 tablet by ity o f 00:00: mouth [place] 00 every 8 Medical (eight) Branch hours as needed for Pain (scale 4-6). traMADol 50 2019-0 Yes [id number] 50mg Take 1 Univers mg tablet 8-27 tablet by ity o f 00:00: mouth [place] 00 every 8 Medical (eight) Branch hours as needed for Pain (scale 4-6). traMADol 50 2019-0 Yes [id number] 50mg Take 1 Univers mg tablet 8-27 tablet by ity o f 00:00: mouth [place] 00 every 8 Medical (eight) Branch hours as needed for Pain (scale 4-6). traMADol 50 2019-0 Yes [id number] 50mg Take 1 Univers mg tablet 8-27 tablet by ity o f 00:00: mouth [place] 00 every 8 Medical (eight) Branch hours as needed for Pain (scale 4-6). predniSONE 2019-0 Yes [id number] 5mg Take 1 Univers 5 mg tablet 8-13 tablet by ity of 00:00: mouth [place] 00 daily. Medical Branch predniSONE 2019-0 Yes [id number] 1mg Take 1 Univers 1 mg tablet 8-13 tablet by ity of 00:00: mouth [place] 00 daily. Medical Branch predniSONE 2019-0 Yes [id number] 5mg Take 1 Univers 5 mg tablet 8-13 tablet by ity of 00:00: mouth [place] 00 daily. [facility] predniSONE 2019-0 Yes [id number] 1mg Take 1 Univers 1 mg tablet 8-13 tablet by ity of 00:00: mouth [place] 00 daily. [facility] predniSONE 2019-0 Yes [id number] 5mg Take 1 Univers 5 mg tablet 8-13 tablet by ity of 00:00: mouth [place] 00 daily. [facility] predniSONE 2019-0 Yes [id number] 1mg Take 1 Univers 1 mg tablet 8-13 tablet by ity of 00:00: mouth [place] 00 daily. [facility] predniSONE 2019-0 2019- No [id number] 5mg Take 1 Univers 5 mg tablet 8-12 11-27 tablet by it y of 00:00: 00:00 mouth [place] 00 :00 daily. [facility] predniSONE 2018- 2019- No [id number] 1mg Take 1 Univers 1 mg tablet 811-26 tablet by it y of 00:00: 00:00 mouth [place] 00 :00 daily. [facility] predniSONE 2018-0 2019- No [id number] 5mg Take 1 Univers 5 mg tablet 8-12 11-27 tablet by it y of 00:00: 00:00 mouth [place] 00 :00 daily. [facility] predniSONE 2019-0 2019- No [id number] 1mg Take 1 Univers 1 mg tablet 827 tablet by it y of 00:00: 00:00 mouth [place] 00 :00 daily. [facility] acetaminoph 2019- Yes 650mg Take 650 U nivers en (TYLENOL 7-02 mg by ity of ARTHRITIS 15:52: mouth [place] PAIN) 650 45 every 8 Medical mg CR (eight) Branch tablet hours as needed for Pain. acetaminoph 2019 Yes 650mg Take 650 U nivers en (TYLENOL 7-02 mg by ity of ARTHRITIS 15:52: mouth [place] PAIN) 650 45 every 8 Medical mg CR (eight) Branch tablet hours as needed for Pain. acetaminoph 2019 Yes 650mg Take 650 U nivers en (TYLENOL 7-02 mg by ity of ARTHRITIS 15:52: mouth [place] PAIN) 650 45 every 8 Medical mg CR (eight) Branch tablet hours as needed for Pain. acetaminoph 20190 Yes 650mg Take 650 U nivers en (TYLENOL 7-02 mg by ity of ARTHRITIS 15:52: mouth [place] PAIN) 650 45 every 8 Medical mg CR (eight) Branch tablet hours as needed for Pain. acetaminoph 0 Yes 650mg Take 650 U nivers en (TYLENOL 7-02 mg by ity of ARTHRITIS 15:52: mouth [place] PAIN) 650 45 every 8 Medical mg CR (eight) Branch tablet hours as needed for Pain. acetaminoph Yes 650mg Take 650 U nivers en (TYLENOL 7-02 mg by ity of ARTHRITIS 15:52: mouth [place] PAIN) 650 45 every 8 Medical mg CR (eight) Branch tablet hours as needed for Pain. acetaminoph Yes 650mg Take 650 U nivers en (TYLENOL 7-02 mg by ity of ARTHRITIS 15:52: mouth [place] PAIN) 650 45 every 8 Medical mg CR (eight) Branch tablet hours as needed for Pain. acetaminoph Yes 650mg Take 650 U nivers en (TYLENOL 7-02 mg by ity of ARTHRITIS 15:52: mouth [place] PAIN) 650 45 every 8 Medical mg CR (eight) Branch tablet hours as needed for Pain. acetaminoph Yes 650mg Take 650 U nivers en (TYLENOL 7-02 mg by ity of ARTHRITIS 15:52: mouth [place] PAIN) 650 45 every 8 Medical mg CR (eight) Branch tablet hours as needed for Pain. acetaminoph 0 Yes 650mg Take 650 U nivers en (TYLENOL 7-02 mg by ity of ARTHRITIS 15:52: mouth [place] PAIN) 650 45 every 8 Medical mg CR (eight) Branch tablet hours as needed for Pain. acetaminoph 0 Yes 650mg Take 650 U nivers en (TYLENOL 7-02 mg by ity of ARTHRITIS 15:52: mouth [place] PAIN) 650 45 every 8 Medical mg CR (eight) Branch tablet hours as needed for Pain. acetaminoph 0 Yes 650mg Take 650 U nivers en (TYLENOL 7-02 mg by ity of ARTHRITIS 15:52: mouth [place] PAIN) 650 45 every 8 Medical mg CR (eight) Branch tablet hours as needed for Pain. acetaminoph 2018-0 Yes 650mg Take 650 U nivers en (TYLENOL 7-02 mg by ity of ARTHRITIS 15:52: mouth [place] PAIN) 650 45 every 8 Medical mg CR (eight) Branch tablet hours as needed for Pain. acetaminoph Yes 650mg Take 650 U nivers en (TYLENOL 7-02 mg by ity of ARTHRITIS 15:52: mouth [place] PAIN) 650 45 every 8 Medical mg CR (eight) Branch tablet hours as needed for Pain. acetaminoph Yes 650mg Take 650 U nivers en (TYLENOL 7-02 mg by ity of ARTHRITIS 15:52: mouth [place] PAIN) 650 45 every 8 Medical mg CR (eight) Branch tablet hours as needed for Pain. acetaminoph Yes 650mg Take 650 U nivers en (TYLENOL 7-02 mg by ity of ARTHRITIS 15:52: mouth [place] PAIN) 650 45 every 8 Medical mg CR (eight) Branch tablet hours as needed for Pain. acetaminoph Yes 650mg Take 650 U nivers en (TYLENOL 7-02 mg by ity of ARTHRITIS 15:52: mouth [place] PAIN) 650 45 every 8 Medical mg CR (eight) Branch tablet hours as needed for Pain. acetaminoph Yes 650mg Take 650 U nivers en (TYLENOL 7-02 mg by ity of ARTHRITIS 15:52: mouth [place] PAIN) 650 45 every 8 Medical mg CR (eight) Branch tablet hours as needed for Pain. pantoprazol Yes 40mg Take 40 mg Univers e 40 mg EC 7-02 by mouth 2 ity of tablet 15:49: (two) [place] 11 times Medical daily. Branch lisinopril- Yes 1{tbl} Take 1 Un marquis hydrochloro 7-02 tablet by ity of thiazide 15:49: mouth [place] 20-12.5 mg 11 daily. Medical per tablet Branch linaclotide Yes 145ug Take 145 U nivers (LINZESS) 7-02 mcg by ity of 145 mcg 15:49: mouth [place] capsule 11 daily. Medical Branch fluticasone Yes Inhale. Uni vers -umeclidin- 7-02 ity of vilanter 15:49: [place] (TRELEGY 11 Medical ELLIPTA) Branch 100-62.5-25 mcg DsDv clindamycin Yes 300mg Take 300 U nivers 300 mg 7-02 mg by ity of capsule 15:49: mouth 3 [place] 11 (three) Medical times Branch daily. pantoprazol Yes 40mg Take 40 mg Univers e 40 mg EC 7-02 by mouth 2 ity of tablet 15:49: (two) [place] 11 times Medical daily. Branch lisinopril- Yes 1{tbl} Take 1 Un marquis hydrochloro 7-02 tablet by ity of thiazide 15:49: mouth [place] 20-12.5 mg 11 daily. Medical per tablet Branch linaclotide Yes 145ug Take 145 U nivers (LINZESS) 7-02 mcg by ity of 145 mcg 15:49: mouth [place] capsule 11 daily. Medical Branch fluticasone Yes Inhale. Uni vers -umeclidin- 7 ity of vilanter 15:49: [place] ([address]) Branch 100-62.5-25 mcg DsDv clindamycin Yes 300mg Take 300 U nivers 300 mg 7-02 mg by ity of capsule 15:49: mouth 3 [place] 11 (three) Medical times Branch daily. pantoprazol Yes 40mg Take 40 mg Univers e 40 mg EC 7-02 by mouth 2 ity of tablet 15:49: (two) [place] 11 times Medical daily. Branch linaclotide Yes 145ug Take 145 U nivers (LINZESS) 7-02 mcg by ity of 145 mcg 15:49: mouth [place] capsule 11 daily. Medical Branch fluticasone Yes Inhale. Uni vers -umeclidin- 702 ity of vilanter 15:49: [place] ([address]) Branch 100-62.5-25 mcg DsDv pantoprazol Yes 40mg Take 40 mg Univers e 40 mg EC 7-02 by mouth 2 ity of tablet 15:49: (two) [place] 11 times Medical daily. Branch linaclotide Yes 145ug Take 145 U nivers (LINZESS) 7-02 mcg by ity of 145 mcg 15:49: mouth [place] capsule 11 daily. Medical Branch fluticasone Yes Inhale. Uni vers -umeclidin- 7-02 ity of vilanter 15:49: [place] ([address]) Branch 100-62.5-25 mcg DsDv pantoprazol Yes 40mg Take 40 mg Univers e 40 mg EC 7-02 by mouth 2 ity of tablet 15:49: (two) [place] 11 times Medical daily. Branch linaclotide Yes 145ug Take 145 U nivers (LINZESS) 7-02 mcg by ity of 145 mcg 15:49: mouth [place] capsule 11 daily. Medical Branch pantoprazol Yes 40mg Take 40 mg Univers e 40 mg EC 7-02 by mouth 2 ity of tablet 15:49: (two) [place] 11 times Medical daily. Branch fluticasone Yes Inhale. Uni vers -umeclidin- 10-01 ity of vilanter 15:49: [place] (TRELEGY 11 Medical ELLIPTA) Branch 100-62.5-25 mcg DsDv lisinopril- Yes 1{tbl} Take 1 Un marquis hydrochloro 7-02 tablet by ity of thiazide 15:49: mouth [place] 20-12.5 mg 11 daily. Medical per tablet Branch pantoprazol Yes 40mg Take 40 mg Univers e 40 mg EC 7-02 by mouth 2 ity of tablet 15:49: (two) [place] 11 times Medical daily. Branch linaclotide Yes 145ug Take 145 U nivers (LINZESS) 7-02 mcg by ity of 145 mcg 15:49: mouth [place] capsule 11 daily. Medical Branch fluticasone Yes Inhale. Uni vers -umeclidin- 10-01 ity of vilanter 15:49: [place] (TRELEGY 11 Medical ELLIPTA) Branch 100-62.5-25 mcg DsDv linaclotide Yes 145ug Take 145 U nivers (LINZESS) 7-02 mcg by ity of 145 mcg 15:49: mouth [place] capsule 11 daily. Medical Branch pantoprazol Yes 40mg Take 40 mg Univers e 40 mg EC 7-02 by mouth 2 ity of tablet 15:49: (two) [place] 11 times Medical daily. Branch linaclotide Yes 145ug Take 145 U nivers (LINZESS) 7-02 mcg by ity of 145 mcg 15:49: mouth [place] capsule 11 daily. Medical Branch fluticasone Yes Inhale. Uni vers -umeclidin- 10-01 ity of vilanter 15:49: [place] ([address]) Branch 100-62.5-25 mcg DsDv pantoprazol 0 Yes 40mg Take 40 mg Univers e 40 mg EC 7-02 by mouth 2 ity of tablet 15:49: (two) [place] 11 times Medical daily. Branch linaclotide Yes 145ug Take 145 U nivers (LINZESS) 7-02 mcg by ity of 145 mcg 15:49: mouth [place] capsule 11 daily. Medical Branch fluticasone [id number] Yes Inhale. Uni vers -umeclidin- - ity of vilanter 15:49: [place] ([address]) Branch 100-62.5-25 mcg DsDv pantoprazol Yes 40mg Take 40 mg Univers e 40 mg EC 7-02 by mouth 2 ity of tablet 15:49: (two) [place] 11 times Medical daily. Branch linaclotide Yes 145ug Take 145 U nivers (LINZESS) 7-02 mcg by ity of 145 mcg 15:49: mouth [place] capsule 11 daily. Medical Branch fluticasone 0 Yes Inhale. Uni vers -umeclidin- 10-01 ity of vilanter 15:49: [place] ([address]) Branch 100-62.5-25 mcg DsDv fluticasone 0 Yes Inhale. Uni vers -umeclidin- 10-01 ity of vilanter 15:49: [place] ([address]) Branch 100-62.5-25 mcg DsDv pantoprazol Yes 40mg Take 40 mg Univers e 40 mg EC 7-02 by mouth 2 ity of tablet 15:49: (two) [place] 11 times Medical daily. Branch clindamycin 0 Yes 300mg Take 300 U nivers 300 mg 7-02 mg by ity of capsule 15:49: mouth 3 [place] 11 (three) Medical times Branch daily. linaclotide Yes 145ug Take 145 U nivers (LINZESS) 7-02 mcg by ity of 145 mcg 15:49: mouth [place] capsule 11 daily. Medical Branch fluticasone [id number] Yes Inhale. Uni vers -umeclidin- 7-02 ity of vilanter 15:49: [place] ([address]) Branch 100-62.5-25 mcg DsDv pantoprazol Yes 40mg Take 40 mg Univers e 40 mg EC 7-02 by mouth 2 ity of tablet 15:49: (two) [place] 11 times Medical daily. Branch linaclotide Yes 145ug Take 145 U nivers (LINZESS) 7-02 mcg by ity of 145 mcg 15:49: mouth [place] capsule 11 daily. Medical Branch fluticasone Yes Inhale. Uni vers -umeclidin- 7 ity of vilanter 15:49: [place] ([address]) Branch 100-62.5-25 mcg DsDv pantoprazol Yes 40mg Take 40 mg Univers e 40 mg EC 7-02 by mouth 2 ity of tablet 15:49: (two) [place] 11 times Medical daily. Branch linaclotide Yes 145ug Take 145 U nivers (LINZESS) 7-02 mcg by ity of 145 mcg 15:49: mouth [place] capsule 11 daily. Medical Branch fluticasone Yes Inhale. Uni vers -umeclidin- 10-01 ity of vilanter 15:49: [place] ([address]) Branch 100-62.5-25 mcg DsDv pantoprazol Yes 40mg Take 40 mg Univers e 40 mg EC 7-02 by mouth 2 ity of tablet 15:49: (two) [place] 11 times Medical daily. Branch linaclotide Yes 145ug Take 145 U nivers (LINZESS) 7-02 mcg by ity of 145 mcg 15:49: mouth [place] capsule 11 daily. Medical Branch fluticasone Yes Inhale. Uni vers -umeclidin- 10-01 ity of vilanter 15:49: [place] ([address]) Branch 100-62.5-25 mcg DsDv pantoprazol Yes 40mg Take 40 mg Univers e 40 mg EC 7-02 by mouth 2 ity of tablet 15:49: (two) [place] 11 times Medical daily. Branch lisinopril- Yes 1{tbl} Take 1 Un marquis hydrochloro 7-02 tablet by ity of thiazide 15:49: mouth [place] 20-12.5 mg 11 daily. Medical per tablet Branch linaclotide Yes 145ug Take 145 U nivers (LINZESS) 7-02 mcg by ity of 145 mcg 15:49: mouth [place] capsule 11 daily. Medical Branch fluticasone 0 Yes Inhale. Uni vers -umeclidin- 10-01 ity of vilanter 15:49: [place] ([address] ELLIP) Branch 100-62.5-25 mcg DsDv clindamycin Yes 300mg Take 300 U nivers 300 mg 7-02 mg by ity of capsule 15:49: mouth 3 [place] 11 (three) Medical times Branch daily. pantoprazol Yes 40mg Take 40 mg Univers e 40 mg EC 7-02 by mouth 2 ity of tablet 15:49: (two) [place] 11 times Medical daily. Branch lisinopril- Yes 1{tbl} Take 1 Un marquis hydrochloro 7-02 tablet by ity of thiazide 15:49: mouth [place] 20-12.5 mg 11 daily. Medical per tablet Branch linaclotide Yes 145ug Take 145 U nivers (LINZESS) 7-02 mcg by ity of 145 mcg 15:49: mouth [place] capsule 11 daily. Medical Branch fluticasone Yes Inhale. Uni vers -umeclidin- 10-01 ity of vilanter 15:49: [place] ([address] ELLIP) Branch 100-62.5-25 mcg DsDv clindamycin Yes 300mg Take 300 U nivers 300 mg 7-02 mg by ity of capsule 15:49: mouth 3 [place] 11 (three) Medical times Branch daily. pantoprazol Yes 40mg Take 40 mg Univers e 40 mg EC 7-02 by mouth 2 ity of tablet 15:49: (two) [place] 11 times Medical daily. Branch lisinopril- Yes 1{tbl} Take 1 Un marquis hydrochloro 7-02 tablet by ity of thiazide 15:49: mouth [place] 20-12.5 mg 11 daily. Medical per tablet Branch linaclotide Yes 145ug Take 145 U nivers (LINZESS) 7-02 mcg by ity of 145 mcg 15:49: mouth [place] capsule 11 daily. Medical Branch fluticasone Yes Inhale. Uni vers -umeclidin- 7-02 ity of vilanter 15:49: [place] ([facility] ELLIPTA) Branch 100-62.5-25 mcg DsDv clindamycin Yes 300mg Take 300 U nivers 300 mg 7-02 mg by ity of capsule 15:49: mouth 3 [place] 11 (three) Medical times Branch daily. pantoprazol Yes 40mg Take 40 mg Univers e 40 mg EC 7-02 by mouth 2 ity of tablet 15:49: (two) [place] 11 times Medical daily. Branch lisinopril- Yes 1{tbl} Take 1 Un marquis hydrochloro 7-02 tablet by ity of thiazide 15:49: mouth [place] 20-12.5 mg 11 daily. Medical per tablet Branch linaclotide Yes 145ug Take 145 U nivers (LINZESS) 7-02 mcg by ity of 145 mcg 15:49: mouth [place] capsule 11 daily. Medical Branch fluticasone Yes Inhale. Uni vers -umeclidin- 7-02 ity of vilanter 15:49: [place] ([address] ELLIP) Branch 100-62.5-25 mcg DsDv clindamycin Yes 300mg Take 300 U nivers 300 mg 7-02 mg by ity of capsule 15:49: mouth 3 [place] 11 (three) Medical times Branch daily. predniSONE Yes Take 2.5 Uni vers 20 mg 7-02 tablets by ity of tablet 00:00: mouth [place] 00 daily. 50 Medical mg po Branch Qdaily x 2weeks, then 40 mg po Qdaily x next 2 weeks, then 30 mg po Qdaily x next 2 weeks and then 20 mg po Qdaily for next 2 weeks predniSONE Yes Take 2.5 Uni vers 20 mg 7-02 tablets by ity of tablet 00:00: mouth [place] 00 daily. 50 Medical mg po Branch Qdaily x 2weeks, then 40 mg po Qdaily x next 2 weeks, then 30 mg po Qdaily x next 2 weeks and then 20 mg po Qdaily for next 2 weeks predniSONE Yes Take 2.5 Uni vers 20 mg 7-02 tablets by ity of tablet 00:00: mouth [place] 00 daily. 50 Medical mg po Branch Qdaily x 2weeks, then 40 mg po Qdaily x next 2 weeks, then 30 mg po Qdaily x next 2 weeks and then 20 mg po Qdaily for next 2 weeks predniSONE Yes Take 2.5 Uni vers 20 mg 7-02 tablets by ity of tablet 00:00: mouth [place] 00 daily. 50 Medical mg po Branch Qdaily x 2weeks, then 40 mg po Qdaily x next 2 weeks, then 30 mg po Qdaily x next 2 weeks and then 20 mg po Qdaily for next 2 weeks predniSONE Yes Take 2.5 Uni vers 20 mg 7-02 tablets by ity of tablet 00:00: mouth [place] 00 daily. 50 Medical mg po Branch Qdaily x 2weeks, then 40 mg po Qdaily x next 2 weeks, then 30 mg po Qdaily x next 2 weeks and then 20 mg po Qdaily for next 2 weeks predniSONE Yes Take 2.5 Uni vers 20 mg 7-02 tablets by ity of tablet 00:00: mouth [place] 00 daily. 50 Medical mg po Branch Qdaily x 2weeks, then 40 mg po Qdaily x next 2 weeks, then 30 mg po Qdaily x next 2 weeks and then 20 mg po Qdaily for next 2 weeks predniSONE Yes Take 2.5 Uni vers 20 mg 7-02 tablets by ity of tablet 00:00: mouth [place] 00 daily. 50 Medical mg po Branch Qdaily x 2weeks, then 40 mg po Qdaily x next 2 weeks, then 30 mg po Qdaily x next 2 weeks and then 20 mg po Qdaily for next 2 weeks predniSONE 2019- No Take 2.5 Un marquis 20 mg 7-02 08-27 tablets by ity of tablet 00:00: 00:00 mouth [place] 00 :00 daily. 50 Medical mg po Branch Qdaily x 2weeks, then 40 mg po Qdaily x next 2 weeks, then 30 mg po Qdaily x next 2 weeks and then 20 mg po Qdaily for next 2 weeks predniSONE 2019- No Take 2.5 Un marquis 20 mg 7-02 08-27 tablets by ity of tablet 00:00: 00:00 mouth [place] 00 :00 daily. 50 Medical mg po Branch Qdaily x 2weeks, then 40 mg po Qdaily x next 2 weeks, then 30 mg po Qdaily x next 2 weeks and then 20 mg po Qdaily for next 2 weeks ergocalcife 2017-04 Yes [id number] Take 1 Un marquis rol, 1-08 capsule by ity of vitamin d2, 00:00: mouth [place] 50,000 unit 00 weekly. Medic al capsule Branch ergocalcife 2017-04 Yes [id number] Take 1 Un marquis rol, 1-08 capsule by ity of vitamin d2, 00:00: mouth [place] 50,000 unit 00 weekly. Medic al capsule Branch ergocalcife 2017-04 Yes [id number] Take 1 Un marquis rol, 1-08 capsule by ity of vitamin d2, 00:00: mouth [place] 50,000 unit 00 weekly. Medic al capsule Branch ergocalcife 2017-04 Yes [id number] Take 1 Un marquis rol, 1-08 capsule by ity of vitamin d2, 00:00: mouth [place] 50,000 unit 00 weekly. Medic al capsule Branch ergocalcife 2017-04 Yes [id number] Take 1 Un marquis rol, 1-08 capsule by ity of vitamin d2, 00:00: mouth [place] 50,000 unit 00 weekly. Medic al capsule Branch ergocalcife 2017-04 Yes [id number] Take 1 Un marquis rol, 1-08 capsule by ity of vitamin d2, 00:00: mouth [place] 50,000 unit 00 weekly. Medic al capsule Branch ergocalcife 2017-04 Yes [id number] Take 1 Un marquis rol, 1-08 capsule by ity of vitamin d2, 00:00: mouth [place] 50,000 unit 00 weekly. Medic al capsule Branch ergocalcife 2017-04 Yes [id number] Take 1 Un marquis rol, 1-08 capsule by ity of vitamin d2, 00:00: mouth [place] 50,000 unit 00 weekly. Medic al capsule Branch ergocalcife 2017-04 Yes [id number] Take 1 Un marquis rol, 1-08 capsule by ity of vitamin d2, 00:00: mouth [place] 50,000 unit 00 weekly. Medic al capsule Branch ergocalcife 2017-04 Yes [id number] Take 1 Un marquis rol, 1-08 capsule by ity of vitamin d2, 00:00: mouth [place] 50,000 unit 00 weekly. Medic al capsule Branch ergocalcife 2017-04 Yes [id number] Take 1 Un marquis rol, 1-08 capsule by ity of vitamin d2, 00:00: mouth [place] 50,000 unit 00 weekly. Medic al capsule Branch ergocalcife 2017-04 Yes [id number] Take 1 Un marquis rol, 1-08 capsule by ity of vitamin d2, 00:00: mouth [place] 50,000 unit 00 weekly. Medic al capsule Branch ergocalcife 2017-04 Yes [id number] Take 1 Un marquis rol, 1-08 capsule by ity of vitamin d2, 00:00: mouth [place] 50,000 unit 00 weekly. Medic al capsule Branch ergocalcife 2017-04 Yes [id number] Take 1 Un marquis rol, 1-08 capsule by ity of vitamin d2, 00:00: mouth [place] 50,000 unit 00 weekly. Medic al capsule Branch ergocalcife 2017-04 Yes [id number] Take 1 Un marquis rol, 1-08 capsule by ity of vitamin d2, 00:00: mouth [place] 50,000 unit 00 weekly. Medic al capsule Branch ergocalcife 2017-04 Yes [id number] Take 1 Un marquis rol, 1-08 capsule by ity of vitamin d2, 00:00: mouth [place] 50,000 unit 00 weekly. Medic al capsule Branch ergocalcife 2017-04 Yes [id number] Take 1 Un marquis rol, 1-08 capsule by ity of vitamin d2, 00:00: mouth [place] 50,000 unit 00 weekly. Medic al capsule Branch ergocalcife 2017-04 Yes [id number] Take 1 Un marquis rol, 1-08 capsule by ity of vitamin d2, 00:00: mouth [place] 50,000 unit 00 weekly. Medic al capsule Branch clindamycin Yes 300mg Take 300 U nivers 300 mg 4-17 mg by ity of capsule 00:00: mouth. [place] 00 Medical Branch acetaminoph 2016-04 Yes 1{tbl} 1 tablet Univers en-codeine 1-29 as needed. ity of 300-30 mg 00:00: [place] tablet 00 Medical Branch acetaminoph 2016-04 Yes 1{tbl} 1 tablet Univers en-codeine 1-29 as needed. ity of 300-30 mg 00:00: [place] tablet 00 [facility] acetaminoph 2017- Yes 1{tbl} 1 tablet Univers en-codeine 1-29 as needed. ity of 300-30 mg 00:00: [place] tablet 00 [facility] acetaminoph 2016- Yes 1{tbl} 1 tablet Univers en-codeine 1-29 as needed. ity of 300-30 mg 00:00: [place] tablet 00 [facility] acetaminoph 2016- Yes 1{tbl} 1 tablet Univers en-codeine 1-29 as needed. ity of 300-30 mg 00:00: [place] tablet 00 [facility] acetaminoph 2016- Yes 1{tbl} 1 tablet Univers en-codeine 1-29 as needed. ity of 300-30 mg 00:00: [place] tablet 00 [facility] acetaminoph 2016- Yes 1{tbl} 1 tablet Univers en-codeine 1-29 as needed. ity of 300-30 mg 00:00: [place] tablet 00 [facility] acetaminoph 2016- Yes 1{tbl} 1 tablet Univers en-codeine 1-29 as needed. ity of 300-30 mg 00:00: [place] tablet 00 [facility] acetamino 2016-04 Yes 1{tbl} 1 tablet Univers en-codeine 1-29 as needed. ity of 300-30 mg 00:00: [place] tablet 00 [facility] 1{tbl} 1 tablet Univers en-codeine 1-29 as needed. ity of 300-30 mg 00:00: [place] tablet 00 [facility] acetaminoph 2016- Yes 1{tbl} 1 tablet Univers en-codeine 1-29 as needed. ity of 300-30 mg 00:00: [place] tablet 00 [facility] acetaminoph 2017- Yes 1{tbl} 1 tablet Univers en-codeine 1-29 as needed. ity of 300-30 mg 00:00: [place] tablet 00 [facility] acetaminoph 2017- Yes 1{tbl} 1 tablet Univers en-codeine 1-29 as needed. ity of 300-30 mg 00:00: [place] tablet 00 [facility] acetaminoph 2017- Yes 1{tbl} 1 tablet Univers en-codeine 1-29 as needed. ity of 300-30 mg 00:00: [place] tablet 00 Medical Branch acetaminoph 2016-04 Yes 1{tbl} 1 tablet Univers en-codeine 1-29 as needed. ity of 300-30 mg 00:00: [place] tablet 00 Medical Branch acetaminoph 2016-04 Yes 1{tbl} 1 tablet Univers en-codeine 1-29 as needed. ity of 300-30 mg 00:00: [place] tablet 00 Medical Branch acetaminoph 2016-04 Yes 1{tbl} 1 tablet Univers en-codeine 1-29 as needed. ity of 300-30 mg 00:00: [place] tablet 00 Medical Branch acetaminoph 2016-04 Yes 1{tbl} 1 tablet Univers en-codeine 1-29 as needed. ity of 300-30 mg 00:00: [place] tablet 00 Medical Branch Calcium-Cho Yes 1{tbl} Take 1 Un marquis lecalcifero 6-20 tablet by ity of l, D3, 00:00: mouth 2 (CALCIUM 00 (two) Medical 500 + D) times Branch 500 daily with mg(1,250mg) meals. -400 unit tablet aspirin Yes 81mg Take 1 Unive rs mg chewable 6-20 tablet by ity of tablet 00:00: mouth [place] 00 daily. Medical Branch Calcium-Cho Yes 1{tbl} Take 1 Un marquis lecalcifero 6-20 tablet by ity of l, D3, 00:00: mouth 2 [place] (CALCIUM 00 (two) Medical 500 + D) times Branch 500 daily with mg(1,250mg) meals. -400 unit tablet aspirin Yes 81mg Take 1 Unive rs mg chewable 6-20 tablet by ity of tablet 00:00: mouth [place] 00 daily. Medical Branch Calcium-Cho Yes 1{tbl} Take 1 Un marquis lecalcifero 6-20 tablet by ity of l, D3, 00:00: mouth 2 [place] (CALCIUM 00 (two) Medical 500 + D) times Branch 500 daily with mg(1,250mg) meals. -400 unit tablet aspirin Yes 81mg Take 1 Unive rs mg chewable 6-20 tablet by ity of tablet 00:00: mouth [place] 00 daily. Medical Branch Calcium-Cho Yes 1{tbl} Take 1 Un marquis lecalcifero 6-20 tablet by ity of l, D3, 00:00: mouth 2 [place] (CALCIUM 00 (two) Medical 500 + D) times Branch 500 daily with mg(1,250mg) meals. -400 unit tablet aspirin 81 0 Yes 81mg Take 1 Unive rs mg chewable 6-20 tablet by ity of tablet 00:00: mouth [place] 00 daily. Medical Branch Calcium-Cho Yes 1{tbl} Take 1 Un marquis lecalcifero 6-20 tablet by ity of l, D3, 00:00: mouth 2 [place] (CALCIUM 00 (two) Medical 500 + D) times Branch 500 daily with mg(1,250mg) meals. -400 unit tablet aspirin 81 Yes 81mg Take 1 Unive rs mg chewable 6-20 tablet by ity of tablet 00:00: mouth [place] 00 daily. Medical Branch Calcium-Cho Yes 1{tbl} Take 1 Un marquis lecalcifero 6-20 tablet by ity of l, D3, 00:00: mouth 2 [place] (CALCIUM 00 (two) Medical 500 + D) times Branch 500 daily with mg(1,250mg) meals. -400 unit tablet aspirin Yes 81mg Take 1 Unive rs mg chewable 6-20 tablet by ity of tablet 00:00: mouth [place] 00 daily. Medical Branch Calcium-Cho Yes 1{tbl} Take 1 Un marquis lecalcifero 6-20 tablet by ity of l, D3, 00:00: mouth 2 [place] (CALCIUM 00 (two) Medical 500 + D) times Branch 500 daily with mg(1,250mg) meals. -400 unit tablet Calcium-Cho Yes 1{tbl} Take 1 Un marquis lecalcifero 6-20 tablet by ity of l, D3, 00:00: mouth 2 [place] (CALCIUM 00 (two) Medical 500 + D) times Branch 500 daily with mg(1,250mg) meals. -400 unit tablet aspirin 81 Yes 81mg Take 1 Unive rs mg chewable 6-20 tablet by ity of tablet 00:00: mouth [place] 00 daily. Medical Branch aspirin 81 Yes 81mg Take 1 Unive rs mg chewable 6-20 tablet by ity of tablet 00:00: mouth [place] 00 daily. Medical Branch Calcium-Cho Yes 1{tbl} Take 1 Un marquis lecalcifero 6-20 tablet by ity of l, D3, 00:00: mouth 2 [place] (CALCIUM 00 (two) Medical 500 + D) times Branch 500 daily with mg(1,250mg) meals. -400 unit tablet aspirin Yes 81mg Take 1 Unive rs mg chewable 6-20 tablet by ity of tablet 00:00: mouth [place] 00 daily. Medical Branch Calcium-Cho Yes 1{tbl} Take 1 Un marquis lecalcifero 6-20 tablet by ity of l, D3, 00:00: mouth 2 [place] (CALCIUM 00 (two) Medical 500 + D) times Branch 500 daily with mg(1,250mg) meals. -400 unit tablet aspirin Yes 81mg Take 1 Unive rs mg chewable 6-20 tablet by ity of tablet 00:00: mouth [place] 00 daily. Medical Branch Calcium-Cho Yes 1{tbl} Take 1 Un marquis lecalcifero 6-20 tablet by ity of l, D3, 00:00: mouth 2 [place] (CALCIUM 00 (two) Medical 500 + D) times Branch 500 daily with mg(1,250mg) meals. -400 unit tablet aspirin Yes 81mg Take 1 Unive rs mg chewable 6-20 tablet by ity of tablet 00:00: mouth [place] 00 daily. Medical Branch Calcium-Cho Yes 1{tbl} Take 1 Un marquis lecalcifero 6-20 tablet by ity of l, D3, 00:00: mouth 2 [place] (CALCIUM 00 (two) Medical 500 + D) times Branch 500 daily with mg(1,250mg) meals. -400 unit tablet aspirin Yes 81mg Take 1 Unive rs mg chewable 6-20 tablet by ity of tablet 00:00: mouth [place] 00 daily. Medical Branch Calcium-Cho Yes 1{tbl} Take 1 Un marquis lecalcifero 6-20 tablet by ity of l, D3, 00:00: mouth 2 [place] (CALCIUM 00 (two) Medical 500 + D) times Branch 500 daily with mg(1,250mg) meals. -400 unit tablet aspirin 2016-0 Yes 81mg Take 1 Unive rs mg chewable 6-20 tablet by ity of tablet 00:00: mouth [place] 00 daily. Medical Branch Calcium-Cho Yes 1{tbl} Take 1 Un marquis lecalcifero 6-20 tablet by ity of l, D3, 00:00: mouth 2 [place] (CALCIUM 00 (two) Medical 500 + D) times Branch 500 daily with mg(1,250mg) meals. -400 unit tablet aspirin Yes 81mg Take 1 Unive rs mg chewable 6-20 tablet by ity of tablet 00:00: mouth [place] 00 daily. Medical Branch Calcium-Cho Yes 1{tbl} Take 1 Un marquis lecalcifero 6-20 tablet by ity of l, D3, 00:00: mouth 2 [place] (CALCIUM 00 (two) Medical 500 + D) times Branch 500 daily with mg(1,250mg) meals. -400 unit tablet aspirin Yes 81mg Take 1 Unive rs mg chewable 6-20 tablet by ity of tablet 00:00: mouth [place] 00 daily. Medical Branch Calcium-Cho Yes 1{tbl} Take 1 Un marquis lecalcifero 6-20 tablet by ity of l, D3, 00:00: mouth 2 [place] (CALCIUM 00 (two) Medical 500 + D) times Branch 500 daily with mg(1,250mg) meals. -400 unit tablet aspirin Yes 81mg Take 1 Unive rs mg chewable 6-20 tablet by ity of tablet 00:00: mouth [place] 00 daily. Medical Branch Calcium-Cho Yes 1{tbl} Take 1 Un marquis lecalcifero 6-20 tablet by ity of l, D3, 00:00: mouth 2 [place] (CALCIUM 00 (two) Medical 500 + D) times Branch 500 daily with mg(1,250mg) meals. -400 unit tablet aspirin Yes 81mg Take 1 Unive rs mg chewable 6-20 tablet by ity of tablet 00:00: mouth [place] 00 daily. Medical Branch Calcium-Cho Yes 1{tbl} Take 1 Un marquis lecalcifero 6-20 tablet by ity of l, D3, 00:00: mouth 2 [place] (CALCIUM 00 (two) Medical 500 + D) times Branch 500 daily with mg(1,250mg) meals. -400 unit tablet aspirin 81 2017-0 Yes 81mg Take 1 Unive rs mg chewable 6-20 tablet by ity of tablet 00:00: mouth [place] 00 daily. Medical Branch Vital Signs Vital Name Observation Time Observation Value Comments Source Systolic blood 2018-11-26 20:06:00 149 mm[Hg] Univer sity of pressure [facility] Branch Diastolic blood 2018-11-26 20:06:00 91 mm[Hg] Unive rsity of pressure [facility] Branch Heart rate 2018-11-26 20:02:00 79 /min Universi ty of [facility] Branch Respiratory rate 2018-11-26 20:02:00 19 /min Univ ersity [facility] Body height 2018-11-26 20:02:00 167.6 cm Universi ty of [facility] Body weight 2018-11-26 20:02:00 128.822 kg Universi ty of [facility] BMI 2018-11-26 20:02:00 45.84 kg/m2 Universi ty of [facility] Oxygen saturation in 2018-11-26 20:02:00 98 /min University of Arterial blood by [facility] [place] [place] Pulse oximetry Branch Systolic blood 2018-11-12 15:21:00 133 mm[Hg] Univer sity of pressure [facility] Branch Diastolic blood 2018-11-12 15:21:00 69 mm[Hg] Unive rsity of [facility] Oxygen saturation in 2018-11-12 15:17:00 95 /min University of Arterial blood by [facility] [place] [place] Pulse oximetry Branch Heart rate 2018-11-12 15:17:00 61 /min Universi ty of [facility] Body temperature 2018-11-12 15:17:00 35.72 Alison [facility] ersity [facility] Branch Respiratory rate 2018-11-12 15:17:00 16 /min Univ ersity of [facility] Branch Body height 2018-11-12 15:17:00 167.6 cm Universi ty of [place] [facility] Body weight 2018-11-12 15:17:00 127.189 kg [facility] [place] [facility] BMI 2018-11-12 15:17:00 45.26 kg/m2 [facility] [place] [facility] Body weight 2018-11-05 13:53:00 125.193 kg [facility] BMI 2018-11-05 13:53:00 44.55 kg/m2 [facility] Procedures Procedure Date / Time Performing Clinician Source Performed C-REACTIVE PROTEIN 2018-11-26 21:18:00 Nacho Perales [facility] AGREEMENTS AUTHORIZATIONS 2018-11-26 05:01:00 Doctor Unassigned, [facility] AND IRREVOCABLE [facility] ASSIGNMENTS (FORM 2000) NO SHOW OR MISSED 2018-11-05 13:39:19 Doctor Unassigned, [facility] APPOINTMENT POLICY [facility] h ACKNOWLEDGEMENT Plan of Care Planned Activity Planned Date Details Comments Source Future Scheduled 2022-05-19 COVID-19 VACCINE (#1) [facility] Test 09:12:43 [code = COVID-19 VACCINE (#1)] Future Scheduled 2022-05-19 Hepatitis C screening [facility] Test 09:12:43 (procedure) [code = 077394482] Future Scheduled 2022-05-19 Screening for [facility] Test 09:12:43 malignant neoplasm of cervix (procedure) [code = 548377271] Future Scheduled 2022-05-19 COLONOSCOPY SCREENING [facility] Test 09:12:43 [code = COLONOSCOPY SCREENING] Future Scheduled 2022-05-19 SHINGLES VACCINES (1 [facility] Test 09:12:43 of 2) [code = SHINGLES VACCINES (1 of 2)] Future Scheduled 2022-05-19 BREAST CANCER [facility] Test 09:12:43 SCREENING [code = BREAST CANCER SCREENING] Future Scheduled 2022-05-19 INFLUENZA VACCINE [facility] Test 09:12:43 [code = INFLUENZA VACCINE] Encounters Start End Encounter Admission Attending Care Care Encounter Source Date/Time Date/Time Type Type Clinicians Facility Department ID 2022-05-17 2022-05-17 Telephone Black, 1.2.840.1 [id number] Methodi 00:00:00 00:00:[id number] [facility] 3.430.2.7 Hospit a .[id number] l .8 2022-05-17 2022-05-17 Telephone Glenn, 1.2.840.9 [id number] [facility] 00:00:00 00:00:[address] Rochelle Moss [id number] 3.430.2.7 Hospit a .[id number] l .8 2020-06-09 2020-06-09 Patient Puneet [facility] [id number] Univers 00:00:00 00:00:00 Outreach Toribio PRIMARY [id number] i ty of [facility] [id number] [place] june MCDERMOTT [phone] [address] 2020-04-28 2020-04-28 Outpatient ULISES SCHREIBER [facility] [id number] [place] 00:00:00 00:00:[address] 2019-10-17 2019-10-17 Outpatient ULISES SCHREIBER [facility] [id number] [place] 00:00:00 00:00:[address] 2019-10-13 2019-10-13 Outpatient Mike LANDON [facility] [id number] [facility] 09:45:00 09:45:00 NEDRA [facility] 2019-09-09 2019-09-09 [facility] [id number] [facility] 08:00:00 08:00:00 BRAYDEN [facility] 2019-07-08 2019-07-08 Outpatient ZARA IGLESIA [facility] [id number] [place] 00:00:00 00:00:[address] 2019-06-11 2019-06-11 Outpatient ULISES SCHREIBER [facility] [id number] [place] 00:00:00 00:00:[address] 2019-06-11 2019-06-11 Outpatient ULISES SCHREIBER [facility] [id number] [place] 00:00:00 00:00:[address] 2018-12-05 2018-12-05 Telephone Heaven [facility] [id number] [facility] 00:00:00 00:00:00 Yves MULTISPEC [id number] ity [facility] [id number] [place] june [facility] [id number] Shanel Marrero [address] [place] [address] [facility] 2018-12-04 2018-12-04 Telephone Angella [facility] [id number] [facility] 00:00:00 00:00:00 Nacho Duarte [id number] ity [place] [id number] [place] [phone] [address] 2018-12-04 2018-12-04 Telephone Angella [facility] [id number] 00:00:00 00:00:00 Nacho Duarte 350.1.13.10 [place] 4.2.7.2.686 Professio [phone] [address] 2018-12-01 2018-12-01 Nurse Isamar REYES [id number] [facility] 00:00:00 00:00:00 Triage dPerlita 350.1.13.10 ity of [facility] 4.2.7.2.686 Mac as [phone] [address] 2018-11-27 2018-11-27 Telephone [facility] 1.2.840.[id number] [facility] 00:00:00 00:00:00 Nacho Duarte 350.1.13.10 [place]2.[place] [phone] [place] [id number] [facility] 2018-11-26 2018-11-26 Bus Info Consultant 2, Adc Lab [facility] 1.2.840.[id number] [facility] 16:13:09 16:28:09 Visit Nacho Perales 350.1.13 .10 it[place] of [place] [phone] [facility] 353 [facility] 2018-11-26 2018-11-26 Office Angella [facility] 1.2.840.[id number] [facility] 14:45:38 16:21:33 Visit Nacho Duarte 350.1.13.10 ity [place]7.2.[place] [phone] [place] [id number] [facility] 2018-11-26 2018-11-26 Orders Doctor ERIC 1.2.840.114 [id number] [facility] 00:00:00 00:00:00 Only Unassigned, DEVANTE 350.1.13.10 ity of [facility] 4.2.7.2.686 Mac as [phone] [address] 2018-11-12 2018-11-12 Bus Info Consultant [facility] 1.2.840.114 [id number] Univers 10:51:27 11:01:27 Visit Brayden Arias [facility] 350.1.13. 10 [place] [phone] [facility] [address] [place] [facility] 2018-11-12 2018-11-12 Office Yves [place] 1.2.840.114 [id number] [facility] 10:04:59 10:34:59 Visit Brayden AriasPEC 350.1.13. 10 [place] [phone] [facility] [address] [place] [address] [facility] 2018-11-05 2018-11-05 Office Sadie [place] 1.2.840.114 [id number] [facility] 08:40:06 09:41:43 Visit Kota wattersPEC 350.1.13.10 [place] [phone] [facility] [address] [place] [facility] 2018-11-05 2018-11-05 Orders Doctor REYES 1.2.840.114 [id number] [facility] 00:00:00 00:00:00 Only Unassigned, DEVANTE 350.1.13.10 ity of [facility] 4.2.7.2.686 [place] as [phone] [address] Results Test Description Test Time Test Comments Results Result Comments Source C-REACTIVE PROTEIN 2018-11-27 17:52:00 Test Item Value Reference Range Interpretation Comme nts CRP (test code = [id number]) 1.3 mg/dL <0.8 H Lab Interpretation (test code = 65199-7) Abnormal [facility] [id number] 17:52:00 Test Item Value Reference Range Interpretation Comments CRP (test code = [id number]) 1.3 mg/dL <0.8 H Lab Interpretation (test code = Abnormal 71168-5) [facility]
[2022-05-22] MEDS ORDERED: ONDANSETRON 4 MG/2 ML VIAL IV PRN (22:33)
[2022-05-22] MEDS: CEFTRIAXONE 1,000 MG in NA CHLORIDE 0.9% 50 ML IVPB SCH (22:42)
[2022-05-22 23:50] VITALS: BMI 47.8
[2022-05-23] MEDS: TEMAZEPAM 15 MG CAP PO PRN (01:48)
[2022-05-23 02:20] LABS: Specific Gravity 1.019 (1.005-1.030); Urine Bilirubin NEGATIVE (Negative); Urine Blood Negative (Negative); Urine Clarity Clear (Clear); Urine Color Light-Yellow (Yellow); Urine Glucose NEGATIVE (Negative); Urine Protein NEGATIVE (Negative); Urine Urobilinogen Normal (Normal)
[2022-05-23 04:41] LABS: Absolute Lymphocytes (CBC) 2.3 K/uL (0.7-4.9); Hematocrit 35.9 % (36.0-45.0); Lymphocytes % 33.2 % (15.3-44.8); MCV 88.6 fL (80-100); MPV 8.9 fL (7.6-11.3); RBC Red Blood Cell Count 4.06 M/uL (3.86-4.86)
[2022-05-23 04:45] LABS: Potassium 4.2 mmol/L (3.5-5.1)
[2022-05-23] MEDS: PANTOPRAZOLE 40MG TABLET PO SCH (05:52)
[2022-05-23] MEDS: IPRATROPIUM BROM 0.5MG/2.5ML NEB PRN ×3 (06:05→21:00)
[2022-05-23] MEDS: ALBUTEROL 2.5 MG/3 ML NEB SOL NEB PRN ×3 (06:05→21:00)
[2022-05-23] MEDS ORDERED: HYDROCODONE/CHLORPHEN 5 ML/OSYR PO ONE (08:03)
[2022-05-23] MEDS: FAMOTIDINE 20 MG TAB PO SCH (08:46)
[2022-05-23] MEDS: CEFTRIAXONE 1,000 MG in NA CHLORIDE 0.9% 50 ML IVPB SCH ×2 (08:46→21:26)
[2022-05-23] MEDS: ACYCLOVIR 400 MG TABLET PO SCH ×3 (08:46→21:28)
[2022-05-23] MEDS: LINZESS 290 MG PO SCH (08:47)
--- NOTE | 2022-05-23 08:55 | RAD REPORT ---
EXAM DESCRIPTION: RAD - Chest Pa And Lat (2 Views) - 05/23/2022 5:44 am CLINICAL HISTORY: Cough Chest pain. COMPARISON: Chest Pa And Lat (2 Views) dated 04/06/2022; Chest Pa And Lat (2 Views) dated 12/27/2017; C hest Single View dated 04/17/2017; Chest Pa And Lat (2 Views) dated 04/15/2017 FINDINGS: The lungs are clear. The heart is upper limit of normal in size. No displaced fractures. IMPRESSION: No acute or concerning finding suspected. The USPSTF recommends annual screening for lung cancer with low-dose CT (LDCT) in adults aged 50 to 8 0 years who have a 20 pack-year smoking history and currently smoke or have quit within the past 15 y ears.
[2022-05-23] MEDS ORDERED: SODIUM CHLORIDE 0.9% 10ML INJ IV SCH (09:00)
[2022-05-23] MEDS: TRAMADOL HCL 50 MG TAB PO PRN ×3 (12:43→21:28)
--- NOTE | 2022-05-23 12:47 | CON ---
Date of Consultation: 05/23/2022 Reason For Consultation: Right breast mass and cellulitis. History Of Present Illness: This is a case of a 62-year-old patient, known in the past, due to the s welling of the right breast. At one point few years ago, she had multiple biopsies and treatment to rule out inflammatory breast cancer. Now today, she comes with a cough and lung issues. At the same time, she was found to have induration of the right breast and mammogram ultrasound showing breast m asses. There was also some induration of the area of the skin. She was started on antibiotics by e primary doctor to rule out infection, but at same time we were consulted for possibility of also br east cancer that include hopefully not obviously inflammatory breast cancer. She stated that she has the induration on and off. There is no nipple discharge. There is no trauma over that region. The re is no ecchymosis she can see. There is no drainage. She does her breast examination every time s he showers and in the last few days, she noticed the induration got worse and that is why she has to look for medical attention. At the same time, she was coughing more than usual, so she was admitted also for treatment for possible pneumonia. She was admitted not too long ago for hypertensive heart disease and some other medical issues. Allergies: BEE STING. Past Medical Problems: Fatty liver, hypertension, stomach ulcer, vertigo, GE reflux. Social History: She does not smoke. She does not drink alcohol. Past Surgical History: Previous biopsies. Breast biopsies. Review of Systems: Patient has had some productive cough. No nausea. No nipple discharge. No skin retraction although some thickening of the skin over the right lateral breast and some muscle in that site too. No feve r. No recent traveling out of the country. 10 points is otherwise unremarkable. Physical Examination: General: Patient is awake, alert. HEENT: Pupils are equal, round, and reactive. Anicteric. Neck: Supple. No mass palpated. Chest: Bilateral breath sounds. Abdomen: Soft and depressible. Extremities: Good capillary refill. Lymph Nodes: Neck, axillary, and femoral, no palpable lymphadenopathy. Breasts: On the right breast, patient has induration of the lateral side of the breast. There is no specific rash or any drainage of the open ulcer. The skin looks a little bit thicker than usual and edematous. No skin retraction. No nipple discharge. No nipple bleeding. Imaging: Mammogram was done in 7 of this month a few weeks ago, which was interpreted by Dr. Cruz as: 1.Skin thickening and edema over the lateral right breast, which we can confirm today with commonly associated with dermatitis, cellulitis, although inflammatory breast cancer cannot be ruled out, so S urgical consultation was requested. 2.Wound #2: An ultrasound was done separately. She has a 13 mm and a 5 mm hypoechoic foci in the l ateral and lower outer right breast. The mass at least larger. They believe it could be taken care of with a core biopsy. Left breast at this moment did not show any obvious pathology. Assessment: This is a 62-year-old patient comes to us with 2 problems: 1.Lung issues that Dr. Aguirre is looking into and treated. 2.Right breast pathology. We have 3 pathologies. We have the dermatitis on the skin and may require an incisional biopsy of th at area, but at the same time, we have this sonographic finding that will require core biopsy ultraso und guided by the radiologist. We discussed the pros and cons with the patient. It will be ideal if it can be done while she is here, but once again I do not want to need to affect her conditions from the treatment of the lungs, so we are going to request a core biopsies and then I am going to go ahead and I will do the incisional biopsy at bedside. NAIMA/TANVIR Voice ID: [id number] Report ID: [id number]
[2022-05-23] MEDS: HYDROCODONE/CHLORPHEN 5 ML/OSYR PO PRN (17:16)
[2022-05-23] MEDS ORDERED: dexAMETHasone 4 MG/ML VIAL IV ONE (21:29)
[2022-05-24] MEDS: HYDROCODONE/CHLORPHEN 5 ML/OSYR PO PRN ×3 (00:19→21:09)
[2022-05-24] MEDS: IPRATROPIUM BROM 0.5MG/2.5ML NEB PRN ×4 (03:20→21:35)
[2022-05-24] MEDS: ALBUTEROL 2.5 MG/3 ML NEB SOL NEB PRN ×4 (03:20→21:35)
[2022-05-24] MEDS: PANTOPRAZOLE 40MG TABLET PO SCH (06:07)
[2022-05-24] MEDS: TRAMADOL HCL 50 MG TAB PO PRN ×2 (08:35→14:51)
[2022-05-24] MEDS: ACYCLOVIR 400 MG TABLET PO SCH ×3 (08:36→21:00)
[2022-05-24] MEDS: FAMOTIDINE 20 MG TAB PO SCH (08:36)
[2022-05-24] MEDS: LINZESS 290 MG PO SCH (08:36)
[2022-05-24] MEDS: CEFTRIAXONE 1,000 MG in NA CHLORIDE 0.9% 50 ML IVPB SCH ×2 (08:36→21:07)
--- NOTE | 2022-05-24 11:22 | P.PN ---
Subjective Date of Service: 05/24/22 Chief Complaint: Right breast mass Subjective: Tolerating diet Physical Examination - Vital Signs Temperature: 97.8 F Blood Pressure: 117/67 Pulse: 90 Respirations: 18 Pulse Ox (%): 94 - Physical Exam General: Alert, Oriented x3 HEENT: Normocephalic Neck: Supple Respiratory: Normal air movement Gastrointestinal: Soft and benign Integumentary: No rashes, No breakdown, No significant lesion, No erythema, No warmth, No cyanosis, Tenderness/swelling (Right lateral ) Neurological: Normal speech, Sensation intact Assessment And Plan - Plan I discuss case with radiologyst Dr Garcia. Pt will have the breast mass ultrasound guide biopsy first then skin biospy will be foloow to avoid disturbing the anatomy for the radiologyst. PT agree. .
[2022-05-24] MEDS ORDERED: dexAMETHasone 4 MG/ML VIAL IV ONE (13:29)
--- NOTE | 2022-05-24 18:35 | PN ---
Date of Progress Note: 05/24/2022 The patient states she feels considerably better as far as her breathing is concerned since we starte d the steroids, although we will give her another dose. She was seen by Surgery who performed a core biopsy. Clinically it is starting to show the same picture as 3 years ago and we went through the sa me process, thinking may be when seen at that time, it was negative. She is developing some erythema on the anterior part of the breast and she states now it is starting to feel like it was before. Obv iously depending on the biopsy, we will determine the continuation of the treatment. As far as her l ungs are concerned, the chest x-ray was clear with much less adventitious sounds. Continue with the IV antibiotics. HR/MODL Voice ID: [id number] Report ID: [id number]
[2022-05-24] MEDS: TEMAZEPAM 15 MG CAP PO PRN (21:09)
--- NOTE | 2022-05-24 21:14 | HP ---
Date of Admission: 05/22/2022 Chief Complaint: Shortness of breath, cough, and breast lesion. History Of Present Illness: The patient presented with the above outlined symptoms approximately 1 w [place] ago. She was treated on outpatient basis with antibiotics with some improvement; however, due to the persistence and the prior history, it was decided to admit her for more intensive care. Past History: The patient had similar episode 3 years ago and it was felt may be she had a malignanc y, but biopsies were negative. She has had some pulmonary issues and was seen by ward service supervisor in [facility] and actually a fungal bronchitis was diagnosed at that time. Social History: Nonsmoker, nondrinker. Family History: Noncontributory. Physical Examination: General: The patient is a rather obese middle-aged female with a persistent nonproductive cough. Vital Signs: Stable. Head And Neck: Normocephalic. Pupils equal and reactive to light and accommodation. Fundi negative. Trachea midline. Thyroid not palpable. Chest: High-pitched rhonchi at both bases. Occasional rales. Adequate air entry and movement bilat erally. Cardiovascular: PMI midclavicular line. Heart: Sounds normal. Peripheral pulses present and equal bilaterally. Abdomen: Obese. No organomegaly. Bowel sounds present. Extremities: Good tone and movement bilaterally. Reflexes physiologic. Rectal: Deferred. Pelvic: Deferred. Breasts: Some area of cellulitis on the right anterior portion, tender. Mass present just below the area of cellulitis. Marked tenderness and edema of the area. Impression: Cellulitis of the breast with underlying mass, acute bronchitis, and obesity. Plan: The patient will be admitted and placed on IV antibiotics and IV steroids. Surgery will be co nsulted for a biopsy. Depending on the results, treatment may vary. HR/MODL Voice ID: [id number]
[2022-05-25] MEDS: TRAMADOL HCL 50 MG TAB PO PRN ×3 (01:36→20:58)
[2022-05-25] MEDS: HYDROCODONE/CHLORPHEN 5 ML/OSYR PO PRN ×2 (05:32→16:19)
[2022-05-25] MEDS: PANTOPRAZOLE 40MG TABLET PO SCH (05:32)
[2022-05-25] MEDS: ACYCLOVIR 400 MG TABLET PO SCH ×3 (09:23→20:57)
[2022-05-25] MEDS: FAMOTIDINE 20 MG TAB PO SCH (09:23)
[2022-05-25] MEDS: LINZESS 290 MG PO SCH (09:23)
[2022-05-25] MEDS: CEFTRIAXONE 1,000 MG in NA CHLORIDE 0.9% 50 ML IVPB SCH ×2 (09:23→20:58)
[2022-05-25] MEDS: ALBUTEROL 2.5 MG/3 ML NEB SOL NEB PRN ×3 (09:24→19:40)
[2022-05-25] MEDS: IPRATROPIUM BROM 0.5MG/2.5ML NEB PRN ×3 (09:24→19:40)
[2022-05-25] MEDS ORDERED: dexAMETHasone 4 MG/ML VIAL IV ONE (14:00)
--- NOTE | 2022-05-25 18:41 | PN ---
Date of Progress Note: 05/25/2022 Patient feels much better today. Her chest is much clear. She did cough up some sputum, which was l ittle purulent. However, pulmonary was negative for bacterial infection. Breasts, basically no haile ge. She will undergo a core biopsy in the morning. Obviously depending on that result, further mary tment will be indicated. As far as her chest, we have given her shot of steroids and should allow to be discharged from a Pulmonary standpoint tomorrow. HR/MODL Voice ID: [id number] Report ID: [id number]
[2022-05-25] MEDS: TEMAZEPAM 15 MG CAP PO PRN (20:57)
[2022-05-26] MEDS: HYDROCODONE/CHLORPHEN 5 ML/OSYR PO PRN ×3 (00:40→21:52)
[2022-05-26] MEDS: IPRATROPIUM BROM 0.5MG/2.5ML NEB PRN ×3 (01:25→14:50)
[2022-05-26] MEDS: ALBUTEROL 2.5 MG/3 ML NEB SOL NEB PRN ×3 (01:25→14:50)
[2022-05-26] MEDS: PANTOPRAZOLE 40MG TABLET PO SCH (05:09)
[2022-05-26] MEDS: TRAMADOL HCL 50 MG TAB PO PRN ×3 (05:09→14:52)
[2022-05-26 05:53] LABS: Protime INR 0.9
[2022-05-26] MEDS: HYDROCODONE/APAP 7.5/325 MG TAB PO PRN ×2 (06:41→20:03)
[2022-05-26] MEDS: LINZESS 290 MG PO SCH (09:00)
[2022-05-26] MEDS: ACYCLOVIR 400 MG TABLET PO SCH ×3 (10:54→20:04)
[2022-05-26] MEDS: CEFTRIAXONE 1,000 MG in NA CHLORIDE 0.9% 50 ML IVPB SCH ×2 (10:54→20:04)
[2022-05-26] MEDS: FAMOTIDINE 20 MG TAB PO SCH (10:55)
[2022-05-26] MEDS ORDERED: dexAMETHasone 4 MG/ML VIAL IV ONE (12:36)
--- NOTE | 2022-05-26 14:03 | RAD REPORT ---
EXAM DESCRIPTION: Ultrasound-guided vacuum assisted breast core biopsy CLINICAL HISTORY: Right Breast mass N COMPARISON: BREAST/AXILLA, LIMITED dated 07/10/2017 FINDINGS: Informed consent was obtained and time-out was performed. The patient's right breast was prepped and draped in the usual sterile fashion. 1% lidocaine was used for local anesthetic purposes. Utilizing aseptic technique and ultrasound guidance, a 12 gauge vacuum assisted core biopsy device wa s used to obtain 4 core specimens through the mass of interest in the lower outer right breast. A pos t biopsy clip was then placed. All collected material was sent for pathology. Patient tolerated procedure well, with no complication s in the Radiology department. IMPRESSION: Successful ultrasound guided vacuum assisted right breast mass biopsy. Pathology is pend ing at this time.
--- NOTE | 2022-05-26 18:47 | PN ---
Date of Progress Note: 05/26/2022 Patient underwent her biopsy earlier today, which she tolerated quite well, although she states her o verall breast has been somewhat more uncomfortable. Hydrocodone did relieve it. As far as her lungs are concerned, her sputum continues to be negative, still productive, slightly discolored. However, her breathing is much better and she should be stable enough to be discharged in the a.m. HR/MODL Voice ID: [id number] Report ID: [id number]
[2022-05-26] MEDS: TEMAZEPAM 15 MG CAP PO PRN (22:58)
[2022-05-27] MEDS: HYDROCODONE/APAP 7.5/325 MG TAB PO PRN ×2 (03:16→07:55)
[2022-05-27] MEDS: TRAMADOL HCL 50 MG TAB PO PRN (05:50)
[2022-05-27] MEDS: PANTOPRAZOLE 40MG TABLET PO SCH (05:51)
[2022-05-27] MEDS: LINZESS 290 MG PO SCH (07:48)
[2022-05-27] MEDS: CEFTRIAXONE 1,000 MG in NA CHLORIDE 0.9% 50 ML IVPB SCH (07:48)
[2022-05-27] MEDS: ACYCLOVIR 400 MG TABLET PO SCH ×2 (07:49→13:51)
[2022-05-27] MEDS: FAMOTIDINE 20 MG TAB PO SCH (07:49)
[2022-05-27] MEDS: HYDROCODONE/CHLORPHEN 5 ML/OSYR PO PRN (07:56)
[2022-05-27] MEDS: IPRATROPIUM BROM 0.5MG/2.5ML NEB PRN (11:44)
[2022-05-27] MEDS: ALBUTEROL 2.5 MG/3 ML NEB SOL NEB PRN (11:44)
[2022-05-27 12:12] VITALS: BP 155/80; TEMP 97.4
[2022-05-27 12:17] VITALS: O2SAT 99
[2022-05-27] MEDS ORDERED: dexAMETHasone 10 MG/ML VIAL IV ONE (12:52)
--- NOTE | 2022-05-27 17:38 | PN ---
Date of Progress Note: 05/27/2022 The patient states her breast is about the same. No biopsy reports present yet. Her lungs are consi derably better, when she still having some shortness of breath and significant cough, although now it has becoming much more productive. We will discharge her on Keflex 500 mg q.i.d., cough syrup, tram adol, , and some prednisone. Decadron will be administered prior to discharge. She will s ee next week as far as the lung is concerned and depending on the biopsy report with Dr. Magana for possible skin biopsy. HR/MODL Voice ID: [id number] Report ID: [id number]
== END 2022-05-27 14:22 | disposition home or self-care (01) | DRG 598 ==
LOC: 2ND 21:33
PROVIDERS: ADMIT Family Medicine; ATTEND Family Medicine
PROC: 0HBT3ZX Excision of Right Breast, Percutaneous Approach, Diagnostic (ICD-10-PCS; principal; 2022-05-26)
DX: C50.911 Malignant neoplasm of unspecified site of right female breast (principal); Z68.42 Body mass index [BMI] 45.0-49.9, adult; E66.9 Obesity, unspecified; N63.0 Unspecified lump in unspecified breast; I10 Essential (primary) hypertension; K21.9 Gastro-esophageal reflux disease without esophagitis; J20.9 Acute bronchitis, unspecified; Z91.030 Bee allergy status; Z20.822 Contact with and (suspected) exposure to COVID-19
CPT/HCPCS: 19083; 36415; 71046; 80048; 81003; 85025; 85610; 85730; 87070; 87205; 87811; 88305; 94640; A4216; J1100; J7613; J7644